=== PATIENT | female | born 1960 | race Two or more races ===

== ENCOUNTER 2023-02-05 11:31 | Emergency (ER) | payer MEDICAID, SELFPAY ==
[2023-02-05 11:40] VITALS: BP 157/92; PULSE 92; RESP 18; TEMP 36.5; O2SAT 98; BMI 25.4
--- NOTE | 2023-02-05 11:46 | ED_ITS ---
HPI - General Adult General Chief complaint: Allergic Reaction Stated complaint: ulcer on back?? Time Seen by Provider: 02/05/23 14:45 Source: patient Mode of arrival: ambulatory Limitations: no limitations History of Present Illness HPI narrative: this is a 62-year-old female presenting to the emergency department for evaluation of rash on her back, ongoing for the past few days, patient does report that recently she change her soap she uses she is not sure this contributed to the rash. She reports rash is itchy. She said she had this a few weeks ago also and resolved. Patient also complaining of diffuse headache without vision changes, dizziness or associated trauma. She tells me it feels like her typical headache however they gave her Tylenol now it is gone at time of my history. Patient denies headache, vision changes, dizziness, nausea, vomiting, abdominal pain, chest pain, shortness of breath at time of evaluation. Related Data Previous Rx's Medication Instructions Recorded prednisone 20 mg tablet 40 mg PO DAILY 5 days #10 tabs 02/05/23 Allergies Allergy/AdvReac Type Severity Reaction Status Date / Time No Known Allergies Allergy Verified 02/05/23 11:39 Review of Systems Review of Systems: Constitutional : No Weight loss, No Fever, No Chills, No Fatigue, No Malaise ENT/Mouth : No sore throat, No Rhinorrhea Eyes: No Eye Pain, No Swelling, No Redness Cardiovascular : No Chest Pain, No SOB, No Dyspnea on Exertion, No Orthopnea, No Edema, No Palpitations Respiratory : No Cough, No Sputum, No Wheezing Gastrointestinal : No Nausea, No Vomiting, No Diarrhea, No Constipation, No abdominal Pain, No Hematochezia, No Melena Genitourinary : No Dysuria, No Urinary Frequency, No Hematuria, Musculoskeletal : No joint pain, No Myalgias, No Joint Swelling Skin : No Skin Lesions, + rash Neuro : No Weakness, No Numbness, No Dizziness, No Headache Psych : No Anxiety/Panic, No Depression All other systems reviewed and are negative Yes all other systems are reviewed and are negative [facility] Past Medical History Attestation statement: The following information was validated with the patient. Source: old records reviewed and nursing notes reviewed Social History Social History Advance Directives: No Advance Directives Information Provided: No Physical Exam ED Vital Signs: Vital Signs - 24 hr 02/05/23 11:40 Temperature 97.7 F Pulse Rate 92 Respiratory Rate 18 Blood Pressure 157/92 H Pulse Oximetry 98 Oxygen Delivery Method Room Air BMI result Body Mass Index 25.4 vss Appearance: Alert.? Oriented X3.? No acute distress.? Head: Normocephalic, atraumatic, no step-offs or deformities Eyes: Pupils equal, round and reactive to light.? ENT: Pharynx normal.?No edema Neck: Normal inspection.? Neck supple.? CVS: Normal heart rate and rhythm.? Pulses normal.? Respiratory: No respiratory distress.? Breath sounds normal.? Abdomen: Soft and nontender.? Skin: Skin warm and dry.? Normal skin color.? Normal skin turgor.? Extremities: No lower extremity edema.? No calf ttp. 5/5 strength to bilateral upper and lower extremities Back: No midline tenderness, no C-spine tenderness, full range of motion, no CVA tenderness bilaterally + rash on lower back around midline maculopapular w/ urticaria and a/c excoriations from itching per patient Neuro: Oriented X 3.? No motor deficit.? No sensory deficit. CN 2-12 intact . Normal rlmbck-gv-jguj, fadw-mo-zkov, steady tandem gait. Course Course Course Narrative: This is an RME: Additional HPI, ROS, PE not included below will be deferred to primary provider. This is a 54-iyls-gkn-kiswahili speaking female, with hx of HTN and migraines, presenting to the ER with complaints of itchy rash on back x 2 weeks. States that she is taking an antibiotic that she got from a friend? but just switched over to dove soap 2 weeks ago. VSS. Maculopapular rash noted to back. Will need further investigation by primary provider in the main emergency department. 1400 - pt approached triage complaining of headache, states that she has a hx of migraines, usually responds to tylenol. Pt medicated with tylenol 1g PO. Medications Administered Discontinued Medications Generic Name Dose Route Start Last Admin Trade Name Freq PRN Reason Stop Dose Admin Acetaminophen 975 mg 02/05/23 14:02 02/05/23 14:07 Acetaminophen 325 Mg Tablet PO 02/05/23 14:03 975 mg ONCE ONE Administration Medical Decision Making Medical Decision Making MDM Narrative: 62-year-old female presents with rash to lower back status post trying a new soap. Physical exam significant for rash on lower back around midline maculopapular w/ urticaria and a/c excoriations from itching per patient likely irritant contact dermatitis versus contact dermatitis versus allergic reaction. history and physical exam less suspicious for herpes zoster , no preceding symptoms to rash or constitutional symptoms. No recent illness. No signs of necrotizing infection. No back pain For red flag symptoms associated with back pain therefore unlikely epidural abscess, cauda equina, cord compression . Headache likely typical headache Which is now resolved, NIH stroke scale 0, neuro nonfocal, unlikely stroke, posterior stroke. plan in his own. Advised her to stop using the soap. Educated patient on diagnosis and treatment plan, answered all question, patient verbalizes understanding. At this time patient will be discharged home, advised to return with new or worsening symptoms. Educated on worrisome signs and symptoms and when to return. At this time I feel comfortable discharge home. Differential Diagnosis Differential Diagnoses: The differential diagnosis associated with the presentation includes likely irritant contact dermatitis versus contact dermatitis versus allergic re action. history and physical exam less suspicious for herpes zoster , no preceding symptoms to rash or constitutional symptoms. No recent illness. No signs of necrotizing infection. No back pain For red flag symptoms associated with back pain therefore unlikely epidural abscess, cauda equina, cord compression . Headache likely typical headache Which is now resolved, NIH stroke scale 0, neuro nonfocal, unlikely stroke, posterior stroke. Admission/Observation Consideration of admission/observation: Escalation of care including admission/observation considered no indication Core Measures AMI core measures followed: Yes Measure exclusions: not indicated Critical Care Time Critical Care Time Critical Care Time: No Discharge Plan Discharge Clinical Impression: Contact dermatitis Patient Disposition: Home, Self-Care Instructions: Contact Dermatitis (ED) Additional Instructions: Take your medications as prescribed. If you were prescribed antibiotics today, it is important that you take your medication to their entirety, do not skip any doses, do not finish them early. Follow-up with your primary care provider this week. Return to the emergency department with new or worsening symptoms. Such as fevers, chills, chest pain, shortness of breath, nausea, vomiting, dizziness, headache, vision changes, lethargy In case of emergency call 911 Prescriptions: New prednisone 20 mg tablet 40 mg PO DAILY 5 Days Qty: 10 0RF Referrals: Physician,Nonstaff [Primary Care Provider] - 2 days Interventions: ED Discharge Assessment Last Done: 02/05/23 16:23 Discharge Date/Time: 02/05/23 16:23
[2023-02-05] MEDS: Acetaminophen 325 MG TABLET 975 MG PO (14:07)
--- NOTE | 2023-02-05 16:07 | PC.NURSE ---
Pt requesting pain medication. Awaiting provider evaluation. ABDIRAHMAN Wall aware.
--- NOTE | 2023-02-05 16:18 | PC.NURSE ---
Patient requested medication for itching. Came to hallway to speak with provider (ABDIRAHMAN Wall). States I'm just going to go home .
== END 2023-02-05 16:23 | disposition home or self-care (01) ==
PROVIDERS: Emergency Provider Student in an Organized Health Care Education/Training Program
DX: L25.9 Unspecified contact dermatitis, unspecified cause (principal); R51.9 Headache, unspecified
CPT/HCPCS: 99283

== ENCOUNTER 2023-02-16 12:52 | Emergency (ER) | payer MEDICAID, SELFPAY ==
--- NOTE | ~2023-02-16 | XR_ITS ---
EXAMINATION: XR LUMBOSACRAL SPINE CLINICAL INFORMATION: Low back pain status post fall. COMPARISON: None available. TECHNIQUE: Three views of the lumbosacral spine. FINDINGS: There is normal lumbar lordosis and spinal alignment. Moderate degenerative disc disease is seen at L4-L5 and L5-S1. There is no acute fracture. Mild bilateral facet arthropathy seen at L5-S1. Surgical clips overlie the right upper quadrant. The soft tissues are unremarkable. XR/XR lumbar spine 2-3V IMPRESSION: L4-L5 and L5-S1 moderate degenerative disc disease and mild bilateral facet arthropathy. No acute abnormality.
--- NOTE | ~2023-02-16 | XR_ITS ---
EXAMINATION: XR SACRUM AND COCCYX CLINICAL INFORMATION: Sacral pain status post fall. COMPARISON: None available. TECHNIQUE: 2 views of the sacrum and 2 views of the coccyx were obtained. FINDINGS: There are no fractures. No bone, joint or soft tissue abnormality is demonstrated. XR/XR sacrum coccyx min 2V IMPRESSION: Unremarkable sacrum/coccyx.
[2023-02-16 14:25] VITALS: BP 141/91; PULSE 110; RESP 16; TEMP 36.3; O2SAT 98; BMI 25.4
--- NOTE | 2023-02-16 14:29 | ED_ITS ---
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 Patient was seen at [facility] 11 days ago for similar symptoms & prescribed prednisone which she has been using without relief. Has been taking OTC benadryl without relief. Denies recent sick contacts, tick bites or travel, new exposures. Denies headache, numbness/ tingling/ weakness to LE, saddle anesthesia, bowel/bladder retention or incontinence, joint pain, fever/chills. Related Data Previous Rx's Medication Instructions Recorded prednisone 20 mg tablet 40 mg PO DAILY 5 days #10 tabs 02/05/23 hydrocortisone 1 % topical cream 1 appl topical BID PRN itching 1 02/16/23 week #28.35 grams Allergies Allergy/AdvReac Type Severity Reaction Status Date / Time No Known Allergies Allergy Verified 02/05/23 11:39 Review of Systems Review of Systems: Constitutional: No Fever, No Chills ENT/Mouth: No Ear Pain, No Nasal Congestion, No Sinus Pain, No Hoarseness, No sore throat Cardiovascular: No Chest Pain, No SOB Respiratory: No Cough, No Sputum, No Wheezing Gastrointestinal: No Nausea, No Vomiting, No Diarrhea, No Constipation, No Abdominal pain Genitourinary: No Dysuria, No Urinary Frequency, No Hematuria, No Urinary Incontinence/retention, No Urgency, No Flank Pain Musculoskeletal: + back pain, no joint pain, No Myalgias, No Joint Swelling Skin: No Skin Lesions, + rash Neuro: No Weakness, No Numbness, No Paresthesias Yes all other systems are reviewed and are negative Constitutional: Constitutional: Reports as per [facility] Past Medical History Attestation statement: The following information was validated with the patient. Source: old records reviewed Social History Social History Advance Directives: No Physical Exam ED Vital Signs: Vital Signs - 24 hr 08/21/23 14:25 Temperature 97.4 F Pulse Rate 110 H Respiratory Rate 16 Blood Pressure 141/91 H Pulse Oximetry 98 Oxygen Delivery Method Room Air BMI result Body Mass Index 25.4 Const General: cooperative, healthy appearing and no acute distress Orientation/consciousness: patient oriented x3 Limitations: no limitations HENMT Head: Yes normal to inspection and Yes atraumatic Ears: hearing grossly normal bilaterally General nose exam: Normal external nose present Face and sinus: Yes normal facial exam Throat: Yes uvula midline, No uvula laterally displaced and No uvular edema Eyes General: appearance normal, both eyes and all related structures EOM: EOMs intact bilaterally Neck Neck: Yes normal visual inspection and Yes no meningeal signs Resp Effort & Inspection: normal respiratory effort and no respiratory distress Auscultation: clear to auscultation bilaterally Cardio Rate: regular rate Heart sounds: S1 normal heart sound present and S2 normal heart sound present GI Inspection: Yes normal to inspection Palpation (GI): Soft to palpation, nontender, no guarding and not rigid Back/Spine/Pelvis Other: No midline cervical/thoracic/lumbar spinous tenderness/step-off or deformity. Thoracic/Lumbar Spine: thoracic and lumbar spine normal to inspection Skin Other: no sloughing, mucus membrane or palm/sole involvement General skin exam: no excoriation(s) Rashes: no rashes Wounds: no wounds Neuro Other: Strength intact throughout. No saddle anesthesia. Sensation intact to light touch. Neurovascular intact distally General: patient oriented x3, gait normal, tone normal, moves all extremities, no meningeal signs and no focal motor deficits Cranial nerves: Yes CN's II-XII intact bilaterally Gait exam (Neuro): Normal gait present Extrem General: Yes normal to inspection Course Course Course Narrative: This is an RME: Additional HPI, ROS, PE not included below will be deferred to primary provider. This is a 62-year-old female, with a past medical history of high blood pressure, presenting to the emergency department for evaluation of continued itchy rash on back x1 month. She was seen on February 05 and was given a prescription for prednisone which provided her with minimal relief. She also is endorsing back pain, and is requesting a shot of pain medication. No difficulty breathing or swallowing. She is speaking in full sentences. In no acute distress vital signs is stable. Plan: Labs, x-rays -Labs unremarkable XR lumbar spine 2-3V IMPRESSION: L4-L5 and L5-S1 moderate degenerative disc disease and mild bilateral facet arthropathy. No acute abnormality. XR sacrum coccyx min 2V IMPRESSION: Unremarkable sacrum/coccyx. Results discussed with patient including worrisome signs and symptoms and strict return precautions, and when to return to the emergency department. They verbalized understanding and feel safe for discharge at this time. Medical Decision Making Medical Decision Making [facility] Narrative: 62-year old female with no significant PMHx presents to the ED today with complaints of atraumatic lower back pain with radiation into b/l LE x1 week and pruritic rash to back x1 mos. Vital signs stable. Patient nontoxic appearing, NAD, lungs CTA b/l, no saddle anesthesia, NV intact distally, no rashes or excoriations noted. Clinical concern for arthritis vs DDD vs MSK pain/strain. Low suspicion zoster, lyme disease, SJS or TENS. No evidence of liver failure/ pathology. Plan: xrays and labs ordered in triage Please refer to course for remaining clinical decision making, interpretation of labs/imaging results, and discussions with consultants and/or family members. Differential Diagnosis Differential Diagnoses: The differential diagnosis associated with the presentation includes As above Admission/Observation Consideration of admission/observation: Escalation of care including admission/observation considered Lab Data [facility] Lab Attestation statement: I reviewed the patient's lab results. 02/16/23 14:44 02/16/23 14:44 Labs: Lab Results 02/16/23 02/16/23 Range/Units 14:44 14:44 WBC 8.1 (4.8-10.8) X10*3/uL RBC 4.63 (4.20-5.50) X10*6/uL Hgb 13.7 (12.0-16.0) g/dl Hct 40.9 (37.0-47.0) % MCV 88.3 (80.0-98.0) fL MCH 29.6 (27.0-33.0) pg MCHC 33.5 (31.0-35.0) g/dl RDW 12.5 (11.0-16.0) % Plt Count 322 (160-400) X10*3/uL MPV 9.3 L (9.4-12.3) fL Immature Gran % (Auto) 0.6 H (0.0-0.4) % Neut % (Auto) 63.2 (45-73) % Lymph % (Auto) 28.9 (20-40) % Sampson % (Auto) 7.1 (2-11) % Eos % (Auto) 0.1 (0-4) % Baso % (Auto) 0.1 (0-2) % Lymph # (Auto) 2.4 (1.2-4.9) X10*3/uL Sampson # (Auto) 0.6 (0.1-1.2) X10*3/uL Eos # (Auto) 0.0 (0.0-0.4) X10*3/uL Baso # (Auto) 0.0 (0.0-0.2) X10*3/uL Abs Immat Gran (auto) 0.05 H (0.00-0.03) X10*3/uL Absolute Neuts (auto) 5.1 (2.0-8.3) x10*3/uL Absolute Nucleated RBC 0.000 (0.0-0.012) X10*3/uL Nucleated RBC % (auto) 0.0 (0.0-0.2) /100WBC Sodium 141 (135-145) mmol/L Potassium 3.5 (3.3-5.1) mmol/L Chloride 105 (96-108) mmol/L Carbon Dioxide 25 (22-29) mmol/L Anion Gap 15 (12-20) BUN 15 (9-16) mg/dL Creatinine 0.75 (0.5-1.4) mg/dL Estim Creat Clear Calc 74.1 Estimated GFR > 60 Random Glucose 125 H (60-115) mg/dL Calcium 10.5 H (8.4-10.2) mg/dL Total Bilirubin 0.3 (0.0-1.0) mg/dL Direct Bilirubin 0.1 (0.0-0.5) mg/dL AST 16 (5-31) U/L ALT 21 (0-31) U/L Alkaline Phosphatase 74 (39-117) U/L Total Protein 8.2 H (6.5-8.0) g/dL Albumin 4.6 (3.5-5.0) g/dL Independent Interpretation I performed an independent interpretation of an: Plain X-Ray Radiology Impression Discussion of test interpretation with radiology: I have reviewed the radiologist's reading. Radiologist Impression: XR lumbar spine 2-3V IMPRESSION: L4-L5 and L5-S1 moderate degenerative disc disease and mild bilateral facet arthropathy. No acute abnormality. XR sacrum coccyx min 2V IMPRESSION: Unremarkable sacrum/coccyx. External Record Review External record reviewed: Inpatient record, Office record, Outpatient record, Prior outpatient labs, Prior outpatient radiology, Primary care record and Outside ED record Tests considered The following testing was considered but not selected: As above Prescription Management I considered prescription management with: Pain Medication and Other Discharge Plan Discharge Clinical Impression: Itching, Degenerative disc disease, lumbar Patient Disposition: Home, Self-Care Instructions: Back Pain (ED), Itchy Skin (ED), Degenerative Disc Disease (ED) Additional Instructions: Your labs are unremarkable. The xrays of your back show disc degeneration of the lumbar region, otherwise reassuring. Please follow up with orthopedics if back pain continues. You have been provided a referral. Topical hydrocortisone has been sent to your pharmacy. Apply this to any area of itching. You can take over the counter benedryl and claritin for the itching as needed. Follow up with dermatology. You have been provided a referral. CALL THEM TO MAKE AN APPOINTMENT. Tus laboratorios no tienen nada especial. Las radiograf?as de huber espalda muestran degeneraci?n discal de la h[place]?n lumbar, por lo dem?s tranquilizadoras. Mateo un seguimiento con ortopedia si el dolor de espalda contin?a. Se le em proporcionado treva referencia. Se em enviado hidrocortisona t?pica a huber farmacia. Aplicar esto a cualquier ?parish de picaz?n. Puede ángel benedryl y claritin de venta odilon para la picaz?n seg?n sea necesario. Seguimiento con dermatolog?a. Se le em proporcionado treva referencia. LL?MENOS PARA HACER TREVA NESTOR. Prescriptions: New hydrocortisone 1 % cream 1 appl topical BID PRN (Reason: itching) 7 Days Qty: 28.35 0RF No Action prednisone 20 mg tablet 40 mg PO DAILY 5 Days Qty: 10 0RF Referrals: Lao,Meagan, PA [Physician Field Research Assistant] - Physician,Unknown J [Primary Care Provider] -
[2023-02-16 14:47] LABS: MANUAL DIFF FLAG NO
[2023-02-16 14:50] LABS: Basophils Percent Auto 0.1 % (0-2); Eosinophils Percent Auto 0.1 % (0-4); Hematocrit 40.9 % (37.0-47.0); Hemoglobin 13.7 g/dl (12.0-16.0); Imm Gran Abs Auto 0.05 X10*3/uL (0.00-0.03); Imm Gran Pct Auto 0.6 % (0.0-0.4); Lymphocytes Absolute Auto 2.4 X10*3/uL (1.2-4.9); Lymphocytes Percent Auto 28.9 % (20-40); Mean Corpuscular HGB Conc 33.5 g/dl (31.0-35.0); Mean Corpuscular Hemoglobin 29.6 pg (27.0-33.0); Mean Corpuscular Volume 88.3 fL (80.0-98.0); Mean Platelet Volume 9.3 fL (9.4-12.3); Monocytes Absolute Auto 0.6 X10*3/uL (0.1-1.2); Monocytes Percent Auto 7.1 % (2-11); Neutrophils Absolute Auto 5.1 x10*3/uL (2.0-8.3); Neutrophils Percent Auto 63.2 % (45-73); Platelet Count 322 X10*3/uL (160-400); Red Blood Count 4.63 X10*6/uL (4.20-5.50); Red Cell Distribution Width 12.5 % (11.0-16.0); White Blood Count 8.1 X10*3/uL (4.8-10.8)
[2023-02-16 15:05] LABS: Alanine Aminotransferase 21 U/L (0-31); Albumin Level 4.6 g/dL (3.5-5.0); Alkaline Phosphatase 74 U/L (39-117); Anion Gap 15 (12-20); Aspartate Amino Transferase 16 U/L (5-31); Bilirubin Direct 0.1 mg/dL (0.0-0.5); Bilirubin Total 0.3 mg/dL (0.0-1.0); Blood Urea Nitrogen 15 mg/dL (9-16); Calcium 10.5 mg/dL (8.4-10.2); Carbon Dioxide 25 mmol/L (22-29); Chloride 105 mmol/L (96-108); Creatinine Clr Calc Pharmacy 74.1; Estimated Glomerular Filt Rate > 60; Glucose Random 125 mg/dL (60-115); Potassium 3.5 mmol/L (3.3-5.1); Sodium 141 mmol/L (135-145); Total Protein 8.2 g/dL (6.5-8.0)
[2023-02-16 16:34] VITALS: BP 125/84; PULSE 98; RESP 20; TEMP 36.6; O2SAT 98
[2023-02-16] MEDS: Ketorolac Tromethamine 30 MG/ML VIAL IM (16:34)
== END 2023-02-16 16:45 | disposition home or self-care (01) ==
PROVIDERS: Physician Assistant Medical; Emergency Provider Emergency Medicine
DX: L29.9 Pruritus, unspecified (principal); M51.36 Other intervertebral disc degeneration, lumbar region; M53.3 Sacrococcygeal disorders, not elsewhere classified; Z79.899 Other long term (current) drug therapy
CPT/HCPCS: 36415; 72100; 72220; 80048; 80076; 85025; 96372; 99283; 99284; J1885

== ENCOUNTER 2023-02-28 10:05 | Emergency (ER) | payer MEDICAID, SELFPAY ==
[2023-02-28 10:15] VITALS: BP 138/89; PULSE 106; RESP 16; TEMP 35.9; O2SAT 97; BMI 26.7
--- NOTE | 2023-02-28 11:21 | ED_ITS ---
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 Reports t hat her entire body is pruritic. Denies any abnormal vaginal discharge or concern for STIs. Has been seen in this emergency department twice, has been on 2 courses of prednisone as well as used hydrocortisone cream without relief. Reports that she has discontinued use of [place] soap and has begin using a soap from [place]. States she did not contact dermatology as instructed at prior visit. She denies any fevers or systemic symptoms, chest pain, shortness of breath. Denies any oral lesions or irritation. MD complaint: rash Onset (ago): week(s) Location: back and genitals Severity: severe Relieving factors: none Associated symptoms: denies other symptoms Treatments prior to arrival: other (prednisone, hydrocortisone cream) Related Data Previous Rx's Medication Instructions Recorded prednisone 20 mg tablet 40 mg PO DAILY 5 days #10 tabs 02/05/23 hydrocortisone 1 % topical cream 1 appl topical BID PRN itching 1 02/16/23 week #28.35 grams hydrocortisone 1 % topical cream 1 appl topical BID PRN itching 02/28/23 #28.35 grams triamcinolone acetonide 0.1 % 1 appl topical BID #15 grams 02/28/23 topical cream Allergies Allergy/AdvReac Type Severity Reaction Status Date / Time No Known Allergies Allergy Verified 02/05/23 11:39 Review of Systems Review of Systems: As per HPI. Yes all other systems are reviewed and are negative Constitutional: Constitutional: Reports as per HPI [facility] Social History Social History Advance Directives: No Advance Directives Information Provided: No Physical Exam ED Vital Signs: Vital Signs - 24 hr 02/28/23 10:15 Temperature 96.7 F L Pulse Rate 106 H Respiratory Rate 16 Blood Pressure 138/89 Pulse Oximetry 97 Oxygen Delivery Method Room Air BMI result Body Mass Index 26.7 Vital signs have been reviewed and appear to be correct. Blood pressure normal. Heart rate mildly tachycardic. Respiratory rate normal. Temperature normal. Oxygen saturation normal. Const General: cooperative, healthy appearing and no acute distress Orientation/consciousness: oriented to person, oriented to place, oriented to time and patient oriented x3 Limitations: no limitations HENMT Other: no oral lesions noted Head: Yes normocephalic and Yes atraumatic Ears: external ears normal General nose exam: Normal external nose present Face and sinus: Yes face symmetric Mouth: Normal oral and palatal mucosa present, lip normal, tongue normal, oropharynx normal and moist mucous membranes Throat: Yes uvula midline Eyes Pupils: Equal, round and reactive pupils present Neck Neck: Yes normal visual inspection and Yes supple Resp Effort & Inspection: normal respiratory effort and able to speak in complete sentences Auscultation: clear to auscultation bilaterally Cardio Rate: regular rate Rhythm: regular rhythm Heart sounds: S1 normal heart sound present and S2 normal heart sound present GI Palpation (GI): Soft to palpation and nontender Auscultation: normoactive bowel sounds General: Yes no CVA tenderness Back/Spine/Pelvis Back: no CVA tenderness Skin Other: Fine maculopapular rash noted to lower back with mild excoriation due to patient scratching at the area with a metal back numberer and wirer. No sloughing, bullae, petechiae, no rash to palms/soles General skin exam: elasticity normal and turgor normal Neuro General: oriented to person, oriented to place, oriented to time, patient oriented x3, moves all extremities, no focal motor deficits and CN's II-XI intact bilaterally Cranial nerves: Yes Equal, round and reactive pupils present Cognition (Neuro): normal cognition Extrem General: Yes full ROM, Yes no pedal edema and Yes no calf tenderness Psych Mental Status: mental status grossly normal Affect: normal affect Thought process: Normal thought process present Medical Decision Making Medical Decision Making MDM Narrative: Patient is a 62-year-old female presenting to the emergency department with complaint of pruritic rash to back and genital area for over a month. On exam patient is awake, A+Ox3, VS WNL, afebrile, normal neurological exam without focal deficits, fine maculopapular rash noted to back and groin, no oral lesions, lungs CTA. Given reported symptoms and physical exam findings, initial differential includes atopic dermatitis, contact dermatitis. Do not suspect DRESS, TEN/SJS, SSSS, TSS. Rash not consistent with herpes zoster, scabies, bed bugs, tinea, lichen planus. Will prescribe triamcinolone cream for back and hydrocortisone cream for genital area. Discussed with patient the importance of following up with dermatology. Advised patient she can begin using cetirizine 10 mg daily and slowly increase the dose up to total max dose of 40 mg to help with itching. Instructed patient to avoid extremes in temperature when showering. Instructed patient to follow-up with primary care provider as well. Return precautions discussed at bedside. Patient verbalized understanding of and agreement with plan. Differential Diagnosis Differential Diagnoses: The differential diagnosis associated with the presentation includes As per MDM. External Record Review External record reviewed: Inpatient record, Office record and Outpatient record Prescription Management I considered prescription management with: Other Discharge Plan Discharge Clinical Impression: Rash and nonspecific skin eruption Patient Disposition: Home, Self-Care Instructions: Contact Dermatitis (DC) Additional Instructions: Ruben lo evaluaron en el departamento de emergencias por un sarpullido. Le recetan dos cremas para aliviar la picaz?n. NO USE la crema de triamcinolona en el ?parish genital, solo use la crema de hidrocortisona all?. Evite temperaturas extremas al ba?arse y utilice ?nicamente agua tibia. Comience a bello Zyrtec (cetirizina) 10 mg al d?a. Si tus s?ntomas no mejoran, puedes bello 10 mg de cetirizina por la ma?ron y por la noche. Si los s?ntomas a?n no mejoran, bello 20 mg por la ma?ron y 10 mg por la noche. Si los s?ntomas no mejoran, bello 20 mg por la ma?ron y 20 mg por la noche. NO BELLO M?S DE 40 mg EN TOTAL EN UN D?A. Es importante que hagas un seguimiento con el dermat?logo, ya que ellos son los especialistas de la piel. POR FAVOR LLAME A JACOBO OFICINA PARA IDANIA NESTOR. Regrese al departamento de emergencias si presenta un sarpullido que empeora, fiebre de 100.4 F o m?s, dificultad para respirar, dolor en el pecho o cualquier otro s?ntoma preocupante. Prescriptions: New hydrocortisone 1 % cream 1 appl topical BID PRN (Reason: itching) Qty: 28.35 0RF Rx Instructions: For itching to genital area triamcinolone acetonide 0.1 % cream 1 appl topical BID Qty: 15 0RF Rx Instructions: Apply to all areas of itching EXCEPT genital area No Action prednisone 20 mg tablet 40 mg PO DAILY 5 Days Qty: 10 0RF hydrocortisone 1 % cream 1 appl topical BID PRN (Reason: itching) 7 Days Qty: 28.35 0RF Referrals: [facility] [Provider Group] [facility] [Provider Group] [facility] [Provider Group] Print Language: Turkmen
== END 2023-02-28 12:13 | disposition home or self-care (01) ==
PROVIDERS: Emergency Provider Emergency Medicine
DX: R21 Rash and other nonspecific skin eruption (principal); L29.9 Pruritus, unspecified
CPT/HCPCS: 99283

== ENCOUNTER 2023-06-12 09:55 | Emergency (ER) | payer MEDICAID, SELFPAY ==
[2023-06-12 09:58] VITALS: BP 96/60; PULSE 98; RESP 20; TEMP 36.1; O2SAT 99; BMI 24.0
--- NOTE | 2023-06-12 11:51 | ED.SKABFB ---
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 Reports eating pepper 1 week ago just prior to onset of itchiness. Reports itchy sensation to entire body, more prominent under her left breast along her bra line. Has not taken any medication at home for this. Denies new detergents, lotions, soaps. Denies known allergies. Denies new medications. Denies fever, chills, chest pain, SOB, wheezing, difficult swallowing or breathing, nausea, vomiting, abd pain. Related Data Previous Rx's Medication Instructions Recorded prednisone 20 mg tablet 40 mg (2 x 20 mg) PO DAILY 5 days 02/05/23 #10 tabs hydrocortisone 1 % topical cream 1 appl topical BID PRN itching 1 02/16/23 week #28.35 grams hydrocortisone 1 % topical cream 1 appl topical BID PRN itching 02/28/23 #28.35 grams triamcinolone acetonide 0.1 % 1 appl topical BID #15 grams 02/28/23 topical cream cetirizine 10 mg tablet (Zyrtec) 10 mg PO DAILY PRN allergy 06/12/23 symptoms #10 tabs diphenhydramine HCl 25 mg capsule 25 mg PO BEDTIME PRN itching #14 06/12/23 (Benadryl) caps epinephrine 0.3 mg/0.3 mL 0.3 mg (0.3 mL) IM Q10M PRN 06/12/23 injection, auto-injector (EpiPen) anaphylaxis #2 ea prednisone 20 mg tablet 20 mg PO DAILY 5 days #5 tabs 06/12/23 Allergies Allergy/AdvReac Type Severity Reaction Status Date / Time No Known Allergies Allergy Verified 02/05/23 11:39 Review of Systems Review of Systems: Constitutional: No fever, chills, fatigue, night sweats, weight changes ENT/Mouth: No ear pain, hearing loss, nasal congestion, sinus pain, rhinorrhea, sore throat Eyes: No eye pain, swelling, redness, vision changes, discharge Cardio: No chest pain, palpitations, BALDERAS, orthopnea, peripheral edema Pulm: No SOB, cough, sputum, wheezing, dyspnea, hemoptysis GI: No nausea, vomiting, hematemesis, abdominal pain, diarrhea, constipation, hematochezia, melena : No irregular bleeding, dysuria, frequency, urgency, hesitancy, hematuria, flank pain, urinary flow changes, urinary incontinence or retention MSK: No back pain, neck pain, joint pain, myalgias Skin: No lesions, rashes, +diffuse pruritis Neuro: No weakness, numbness, paresthesias, LOC, dizziness, headache All other systems reviewed and are negative. [facility] Past Medical History Attestation statement: The following information was validated with the patient. Source: old records reviewed and nursing notes reviewed Social History Social History Advance Directives: No Advance Directives Information Provided: No Physical Exam Vital Signs: Vital Signs: Last Vital Signs Temp 96.9 F 06/12/23 09:58 Pulse 98 06/12/23 09:58 Resp 20 06/12/23 09:58 BP 96/60 06/12/23 09:58 Pulse Ox 99 06/12/23 09:58 O2 Del Method Room Air 06/12/23 09:58 BMI result Body Mass Index 24.0 vss Const: General: cooperative, healthy appearing, no acute distress, alert and awake Orientation/consciousness: patient oriented x3 Limitations: no limitations HEENT: Other: + No facial edema. Tongue and lips wnl. + No edema to buccal mucosa + Posterior oropharynx without erythema/edema. Uvula midline. Controlling secretions and speaking in complete sentences + No submandublar or submental LAD + No cervical LAD Head: Yes normal to inspection Ears: hearing grossly normal bilaterally Eyes: General: appearance normal, both eyes and all related structures Periorbital: periorbital findings normal Conjunctivae: conjunctivae normal Sclerae: sclerae normal Pupils: Equal, round and reactive pupils present EOM: EOMs intact bilaterally Neck: Neck: Yes normal visual inspection, Yes full ROM and Yes no lymphadenopathy Resp: Effort & Inspection: normal respiratory effort, able to speak in complete sentences and no respiratory distress Auscultation: clear to auscultation bilaterally and no wheezes Cardio: Jugular venous distension: no JVD Rate: regular rate Rhythm: regular rhythm Peripheral pulses: radial pulses present and dorsalis pedis present GI: Inspection: Yes normal to inspection Palpation (GI): Soft to palpation and nontender Skin: Other: + refer to photos below + small scattered flat light red pruritic lesions. Noted to b/l arms and torso. no pustules, blistering, or oozing. spares the palms, soles, webbed spaces, and mucous membranes. no dermatomal distribution. no weeping. no sloughing. Neuro: General: patient oriented x3, gait normal and moves all extremities Cranial nerves: Yes Equal, round and reactive pupils present Extrem: General: Yes normal to inspection and Yes full ROM Course Course Course Narrative: 1321-- on re-evaluation, patient states that her itching has improved with Pepcid, Benadryl, Solu-Medrol. There are no signs of acute respiratory distress. She is sitting on bed, no longer itching her skin. Airway is patent. Lungs cta. Concern for folliculitis versus contact dermatitis. Will send patient home with steroid and antihistamine. Advised patient to follow-up with her primary care provider this week and a referral to an contact center specialist has been provided to her. She was advised to call them to make an appointment. Her son at bedside will be driving her home today. Patient has remained stable throughout ED visit today. Discussed strict return precautions. All questions answered at this time. Patient is agreeable with disposition and stable for discharge. Medications Administered Discontinued Medications Generic Name Dose Route Start Last Admin Trade Name Lyndonq PRN Reason Stop Dose Admin Diphenhydramine HCl 50 mg 06/12/23 11:59 06/12/23 12:13 Diphenhydramine Hcl 25 Mg Capsule PO 06/12/23 12:00 50 mg ONCE ONE Administration Famotidine 20 mg 06/12/23 11:59 06/12/23 12:13 Famotidine 20 Mg Tablet PO 06/12/23 12:00 20 mg ONCE ONE Administration Methylprednisolone Sodium Succinate 60 mg 06/12/23 11:59 06/12/23 12:13 Methylprednisolone Sod Succ 125 Mg/2 Ml Vial IM 06/12/23 12:00 60 mg ONCE ONE Administration Medical Decision Making Medical Decision Making MDM Narrative: 62 year old female with no significant pmhx presents to the ED today with a complaint of diffuse body itching x1 week. VSS. Patient is nontoxic appearing and in NAD. On exam, there are small scattered flat light red pruritic lesions. Noted to b/l arms and torso. no pustules, blistering, or oozing. spares the palms, soles, webbed spaces, and mucous membranes. no dermatomal distribution. no weeping. no sloughing. No facial edema. Tongue and lips wnl. No edema to buccal mucosa. Posterior oropharynx without erythema/edema. Uvula midline. Controlling secretions and speaking in complete sentences. No submandublar or submental LAD. No cervical LAD. Lungs cta b/l. Clinical concern for folliculitis, contact dermatitis, allergic reaction, urticaria. Unlikely angioedema, herpez zoster, funcgal infection, cellulitis, PCV, hepatitis, SJS or TEN, plant dermatitis, medication reaction, atopic dermatitis, eczema, bullous pemphigoid. Paln for medical management and re-evaluation. Differential Diagnosis Differential Diagnoses: The differential diagnosis associated with the presentation includes as above. Admission/Observation not indicated. External Record Review External record reviewed: Inpatient record Prescription Management I considered prescription management with: Other (steroid, antihistamine) Critical Care Time Critical Care Time Critical Care Time: No Discharge Plan Discharge Clinical Impression: Rash Patient Disposition: Home, Self-Care Instructions: Contact Dermatitis (ED), Acute Rash (ED), Cold Compress or Soak (ED) Additional Instructions: Your rash improved with medications today. Prednisone is a steroid that has been sent to your pharmacy. Take this over the next 5 days to help with rash. Benadryl is an antihistamine that has been sent to your pharmacy. Take this as needed for itching. Do not drive or drink on this as it may make you drowsy. Zyrtec has been sent to your pharmacy. Take this as needed for any allergic reaction. An EpiPen has been sent to your pharmacy for emergency use. If you feel like you can not breathe, your throat is closing, or feel like you are having an anaphylactic reaction, inject this into her thigh. Immediately after injection 911 should be called for immediate evaluation. Please follow-up with your PCP this week. Referral to an contact center specialist has been provided to you. You may call them to make an appointment. They will not call you. If symptoms persist or worsen despite treatment please return to the emergency department. The case of an emergency call 911. Isaacs erupci?n mejor? con medicamentos hoy. La prednisona es un esteroide que se envi? a [place]. [place] esto baljeet los pr?ximos 5 d?as para ayudar con el sarpullido. Benadryl es un antihistam?shantell que se em enviado a [place] farm[place]. [place] esto seg?n sea necesario para la picaz?n. No conduzca ni bharti con esto, ya que puede provocarle somnolencia. Zyrtec em sido enviado a [place] farm[place]. T?crane seg?n sea necesario para cualquier reacci?n al?rgica. Se envi? un EpiPen a [place] para uso de emergencia. Si siente que no puede respirar, se le danny la garganta o siente que est? teniendo treva reacci?n anafil?ctica, inyecte esto en isaacs muslo. Inmediatamente despu?s de la inyecci?n se debe llamar al 911 para treva evaluaci?n inmediata. Mateo un seguimiento con isaacs PCP esta semana. Se le em proporcionado treva derivaci?n a un especialista en alergias. Puede llamarlos para programar treva emily. No te llamar?n. Si los s?ntomas persisten o empeoran a pesar del tratamiento, regrese al departamento de emergencias. El castro de treva llamada de emergencia al 911. Prescriptions: New prednisone 20 mg tablet 20 mg PO DAILY 5 Days Qty: 5 0RF cetirizine [Zyrtec] 10 mg tablet 10 mg PO DAILY PRN (Reason: allergy symptoms) Qty: 10 0RF diphenhydramine HCl [Benadryl] 25 mg capsule 25 mg PO BEDTIME PRN (Reason: itching) Qty: 14 0RF Rx Instructions: may repeat once in 30-60 minutes if not effective epinephrine [EpiPen] 0.3 mg/0.3 mL auto-injector 0.3 mg IM Q10M PRN (Reason: anaphylaxis) Qty: 2 0RF Rx Instructions: for 2 doses No Action prednisone 20 mg tablet 40 mg PO DAILY 5 Days Qty: 10 0RF hydrocortisone 1 % cream 1 appl topical BID PRN (Reason: itching) 7 Days Qty: 28.35 0RF hydrocortisone 1 % cream 1 appl topical BID PRN (Reason: itching) Qty: 28.35 0RF Rx Instructions: For itching to genital area triamcinolone acetonide 0.1 % cream 1 appl topical BID Qty: 15 0RF Rx Instructions: Apply to all areas of itching EXCEPT genital area Referrals: Bola Gaming DO [Physician] - Interventions: ED Discharge Assessment Last Done: 06/12/23 14:01 Discharge Date/Time: 06/12/23 14:01 Print Language: Mongolian
[2023-06-12] MEDS: Famotidine 20 MG TABLET PO (12:13)
[2023-06-12] MEDS: diphenhydrAMINE HCL 25 MG CAPSULE 50 MG PO (12:13)
[2023-06-12] MEDS: methylPREDNISolone Sod Succ 125 MG/2 ML VIAL 60 MG IM (12:13)
== END 2023-06-12 14:01 | disposition home or self-care (01) ==
PROVIDERS: Emergency Provider Emergency Medicine Emergency Medical Services
DX: R21 Rash and other nonspecific skin eruption (principal); Z79.899 Other long term (current) drug therapy
CPT/HCPCS: 96372; 99282; 99284; J2930

== ENCOUNTER 2023-06-27 09:50 | Emergency (ER) | payer MEDICAID, SELFPAY ==
[2023-06-27 10:13] VITALS: BP 123/86; PULSE 102; RESP 18; TEMP 36; O2SAT 98; BMI 25.0
--- NOTE | 2023-06-27 11:28 | ED_ITS ---
HPI - General Adult General Chief complaint: General Medical Stated complaint: itchy body?? Time Seen by Provider: 06/27/23 10:39 Source: patient Mode of arrival: ambulatory Limitations: no limitations History of Present Illness HPI narrative: patient is a 62-year-old female who presents emergency department for evaluation of full body pruritus. She states she has been experiencing itching over her body for the past 4 months, denies any visible rash. She has been seen in this emergency department twice for this states she has been given different medications and creams none of which have helped. She states she has not followed up with her primary care provider as she has been visiting for the past few months from [place] and that is where her primary care provider is. She denies any known allergens, recent changes to soaps detergents or new foods. Denies any chest pain, shortness of breath, swelling. She also states that she is experiencing her chronic low back pain, she states she is prescribed muscle relaxers for this but she has ran out of the medication and does not have follow-up with her primary care provider until 07/05/2022. She denies any recent injury. Denies fevers, chills, burning with micturition, urinary frequency/urgency/hesitancy, bladder or bowel dysfunction, numbness or tingling of the perineum or bilateral legs. Denies any recent surgical procedures, any known immune compromising conditions, personal history of cancer, or IV drug usage. Related Data Previous Rx's Medication Instructions Recorded prednisone 20 mg tablet 40 mg (2 x 20 mg) PO DAILY 5 days 02/05/23 #10 tabs hydrocortisone 1 % topical cream 1 appl topical BID PRN itching 1 02/16/23 week #28.35 grams hydrocortisone 1 % topical cream 1 appl topical BID PRN itching 02/28/23 #28.35 grams triamcinolone acetonide 0.1 % 1 appl topical BID #15 grams 02/28/23 topical cream cetirizine 10 mg tablet (Zyrtec) 10 mg PO DAILY PRN allergy 06/12/23 symptoms #10 tabs diphenhydramine HCl 25 mg capsule 25 mg PO BEDTIME PRN itching #14 06/12/23 (Benadryl) caps epinephrine 0.3 mg/0.3 mL 0.3 mg (0.3 mL) IM Q10M PRN 06/12/23 injection, auto-injector (EpiPen) anaphylaxis #2 ea prednisone 20 mg tablet 20 mg PO DAILY 5 days #5 tabs 06/12/23 cyclobenzaprine 10 mg tablet 10 mg PO TID PRN muscle spasm #20 06/27/23 tabs hydroxyzine HCl 25 mg tablet 25 mg PO QID PRN itching #20 tabs 06/27/23 Allergies Allergy/AdvReac Type Severity Reaction Status Date / Time No Known Allergies Allergy Verified 06/27/23 10:15 Review of Systems Review of Systems: Yes all other systems are reviewed and are negative [facility] Past Medical History Attestation statement: The following information was validated with the patient. Source: old records reviewed Social History Social History Advance Directives: No Advance Directives Information Provided: No Physical Exam ED Vital Signs: Vital Signs - 24 hr 06/27/23 10:13 Temperature 96.8 F Pulse Rate 102 H Respiratory Rate 18 Blood Pressure 123/86 Pulse Oximetry 98 Oxygen Delivery Method Room Air BMI result Body Mass Index 25.0 Appearance: Alert.?Oriented to person, place and time. No acute distress.?Normal affect. Eyes: Pupils equal, round and reactive to light.? ENT: Pharynx normal.?? Neck: Normal inspection.? Neck supple.?? CVS: Heart sounds normal. Normal heart rate and rhythm.? Pulses normal; bilateral radial pulses 2+, bilateral posterior tibial/dorsalis pedis pulses 2+.? Respiratory: No respiratory distress.? Lung sounds clear to auscultation bilaterally?? Abdomen: Soft and non-tender. Normoactive bowel sounds. No pulsatile mass.?? Skin: Skin warm and dry.? Normal skin color.? Normal skin turgor.?? Extremities: No lower extremity edema.? No calf ttp? Back: + mild paraspinal muscular tenderness from lumbar region to coccyx. No CVA tenderness. No midline spinal tenderness, step-off's, or deformity. Full ROM intact in bilateral lower extremities. Straight leg test negative on right; Straight leg test Negative on left. No rashes, lesions, areas of induration or fluctuance, or signs of infection noted., Neuro: Moves all extremities spontaneously. 5/5 strength in hip extension/flexion, abduction, adduction. Sensation to light touch intact bilaterally. Patellar and Achilles reflex 2+ bilaterally. No ataxia, gait normal and steady.. No focal neuro deficits. Medical Decision Making Medical Decision Making MDM Narrative: patient is a 62-year-old female presents emergency department for evaluation of diffuse body pruritus and chronic lower back pain. Pruritus has been persistent for the past 4 months, she was seen in the emergency department on 02/28/2023 at which time she was prescribed topical corticosteroids without improvement, on 06/12/2023 she was seen here as well and prescribed prednisone, Zyrtec, and Benadryl which she states did not alleviate her symptoms. There is no active rash at this time. Discussed with patient nonspecific etiology discussed possible atopic dermatitis, mild contact dermatitis, dried skin. She may trial a course of hydroxyzine to see whether this will help, but I did advise her that she ultimately should have follow-up with her primary care provider who may consider referral to Dermatology/ allergy testing when she returns home. Regarding her back pain, this is chronic in nature and she has ran out of her medications of which she is unaware of the name. No recent injury. On neurological exam there are no deficits. Not consistent with spinal fracture, spinal infection, epidural abscess, AAA, epidural abscess, or dissection. No high risk past medical history including incontinence, fever, immunosuppression, recent surgery or lumbar puncture, coagulopathy, significant trauma, recent unintentional weight loss, pulsatile mass, history of cancer, history of TB, history of IV drug use that would warrant MRI or CT. Not consistent with pyelonephritis, urinary tract infection, renal calculi, pelvic infection, appendicitis, diverticulitis. On exam no concern for cauda equina syndrome. No imaging is currently indicated at this time. Plan for discharge home with prescription for cyclobenzaprine, and follow-up with primary care provider, and patient agreed with plan. Differential Diagnosis Differential Diagnoses: The differential diagnosis associated with the presentation includes ( as noted above) Admission/Observation Consideration of admission/observation: Escalation of care including admission/observation considered ( as noted above) Prescription Management I considered prescription management with: Pain Medication Discharge Plan Discharge Clinical Impression: Pruritus, Lumbago Patient Disposition: Home, Self-Care Instructions: Back Pain (ED), Itchy Skin (ED) Prescriptions: New hydroxyzine HCl 25 mg tablet 25 mg PO QID PRN (Reason: itching) Qty: 20 0RF cyclobenzaprine 10 mg tablet 10 mg PO TID PRN (Reason: muscle spasm) Qty: 20 0RF No Action prednisone 20 mg tablet 40 mg PO DAILY 5 Days Qty: 10 0RF hydrocortisone 1 % cream 1 appl topical BID PRN (Reason: itching) 7 Days Qty: 28.35 0RF hydrocortisone 1 % cream 1 appl topical BID PRN (Reason: itching) Qty: 28.35 0RF Rx Instructions: For itching to genital area triamcinolone acetonide 0.1 % cream 1 appl topical BID Qty: 15 0RF Rx Instructions: Apply to all areas of itching EXCEPT genital area prednisone 20 mg tablet 20 mg PO DAILY 5 Days Qty: 5 0RF cetirizine [Zyrtec] 10 mg tablet 10 mg PO DAILY PRN (Reason: allergy symptoms) Qty: 10 0RF diphenhydramine HCl [Benadryl] 25 mg capsule 25 mg PO BEDTIME PRN (Reason: itching) Qty: 14 0RF Rx Instructions: may repeat once in 30-60 minutes if not effective epinephrine [EpiPen] 0.3 mg/0.3 mL auto-injector 0.3 mg IM Q10M PRN (Reason: anaphylaxis) Qty: 2 0RF Rx Instructions: for 2 doses Referrals: Physician,Unknown J [Primary Care Provider] -
== END 2023-06-27 12:13 | disposition home or self-care (01) ==
PROVIDERS: Emergency Provider Emergency Medicine
DX: L29.9 Pruritus, unspecified (principal); M54.50 Low back pain, unspecified
CPT/HCPCS: 99283

== ENCOUNTER 2023-10-05 10:51 | Emergency (ER) | payer MEDICAID, SELFPAY ==
[2023-10-05 11:25] VITALS: BP 111/67; PULSE 91; RESP 20; TEMP 36.1; O2SAT 98; BMI 24.5
--- NOTE | 2023-10-05 11:38 | ED.GENADULT ---
HPI - General Adult General Chief complaint: Skin/Abscess/Foreign Body Stated complaint: itchy all over Time Seen by Provider: 10/05/23 13:24 Source: patient Mode of arrival: ambulatory Limitations: no limitations History of Present Illness HPI narrative: 63 yold female with pmh of GERD presents to the ED for generalized pruritis and presently has small area of redness on right breast. Patient states has had red itchy red rash on her body that has come and gone ( resolved). patient states no change in food, dergents, soap, or cosmetic. patient states she is visting and might be her son;s Dog causing symptoms. Related Data Previous Rx's ?Medication ?Instructions ?Recorded prednisone 20 mg tablet 40 mg (2 x 20 mg) PO DAILY 5 days 02/05/23 #10 tabs hydrocortisone 1 % topical cream 1 appl topical BID PRN itching 1 02/16/23 week #28.35 grams hydrocortisone 1 % topical cream 1 appl topical BID PRN itching 02/28/23 #28.35 grams triamcinolone acetonide 0.1 % 1 appl topical BID #15 grams 02/28/23 topical cream cetirizine 10 mg tablet (Zyrtec) 10 mg PO DAILY PRN allergy 06/12/23 symptoms #10 tabs diphenhydramine HCl 25 mg capsule 25 mg PO BEDTIME PRN itching #14 06/12/23 (Benadryl) caps epinephrine 0.3 mg/0.3 mL 0.3 mg (0.3 mL) IM Q10M PRN 06/12/23 injection, auto-injector (EpiPen) anaphylaxis #2 ea prednisone 20 mg tablet 20 mg PO DAILY 5 days #5 tabs 06/12/23 cyclobenzaprine 10 mg tablet 10 mg PO TID PRN muscle spasm #20 06/27/23 tabs hydroxyzine HCl 25 mg tablet 25 mg PO QID PRN itching #20 tabs 06/27/23 diphenhydramine HCl 25 mg capsule 25 mg PO TID PRN itching 7 days 10/05/23 (Benadryl) #21 caps famotidine 20 mg tablet (Pepcid) 20 mg PO BID 7 days #14 tabs 10/05/23 prednisone 20 mg tablet 40 mg (2 x 20 mg) PO DAILY 5 days 10/05/23 #10 tabs Allergies Allergy/AdvReac Type Severity Reaction Status Date / Time No Known Allergies Allergy Verified 10/05/23 11:37 Review of Systems Review of Systems: pruritis Yes all other systems are reviewed and are negative [facility] Social History Social History Advance Directives: No Advance Directives Information Provided: No Physical Exam ED Vital Signs: Vital Signs - 24 hr 10/05/23 11:25 10/05/23 13:58 Temperature 96.9 F 96.9 F Pulse Rate 91 91 Respiratory Rate 20 20 Blood Pressure 111/67 111/67 Pulse Oximetry 98 98 Oxygen Delivery Method Room Air Room Air BMI result Body Mass Index 24.5 Const General: cooperative, healthy appearing, comfortable, no acute distress, well developed, alert and awake Orientation/consciousness: patient oriented x3 HENMT Other: negative for facial swelling, lip swelling, tongue swelling, or uvula swelling. Head: Yes normal to inspection, Yes No palpable skull fracture present, Yes normocephalic, Yes atraumatic and No abrasion Throat: Yes posterior oropharynx normal, Yes tonsils normal and Yes uvula midline Eyes General: appearance normal, both eyes and all related structures Neck Neck: Yes normal visual inspection, Yes full ROM, Yes no lymphadenopathy, Yes no meningeal signs, Yes trachea midline, Yes supple, No anterior neck swelling and No tender Chest Chest palpation & inspection: normal inspection of the chest and normal palpation of entire chest wall Chest/axillae images: 1. small area of uticara. negative mass, tendernes, fluctulance, nipple discharge, or lympadenopahty. Resp Effort & Inspection: normal respiratory effort and able to speak in complete sentences Auscultation: clear to auscultation bilaterally Cardio Jugular venous distension: no JVD Heart sounds: S1 normal heart sound present and S2 normal heart sound present GI Inspection: Yes normal to inspection Palpation (GI): Soft to palpation, not firm, nontender, no guarding and not rigid General: Yes no CVA tenderness Back/Spine/Pelvis Back: no CVA tenderness Skin General skin exam: no rashes or lesions noted, elasticity normal and turgor normal Neuro General: patient oriented x3, gait normal, tone normal, moves all extremities, Normal light touch and pain sensation, no meningeal signs, no focal motor deficits, CN's II-XI intact bilaterally and normal sensation to monofilament Extrem General: Yes normal to inspection, Yes full ROM and Yes capillary refill normal Psych Appearance: grossly normal, well kempt and not disheveled Course Course Course Narrative: RME: 63 yold female presents to the ED for pruritis for the past 3 days. Patient denies any new allergies. patient thinks might by son's dog causing itchiness. Patient presently has no hives. she states hives she thinks couple of days ago. WIll do labs. benadryl, prednisone, and pepcid ordered Medications Administered Discontinued Medications Generic Name Dose Route Start Last Admin Trade Name Freq PRN Reason Stop Dose Admin Diphenhydramine HCl 50 mg 10/05/23 11:37 10/05/23 11:43 Diphenhydramine Hcl 25 Mg Capsule PO 10/05/23 11:38 50 mg ONCE ONE Administration Famotidine 20 mg 10/05/23 11:37 10/05/23 11:43 Famotidine 20 Mg Tablet PO 10/05/23 11:38 20 mg ONCE ONE Administration Prednisone 60 mg 10/05/23 11:37 10/05/23 11:43 Prednisone 20 Mg Tablet PO 10/05/23 11:38 60 mg ONCE ONE Administration Medical Decision Making Medical Decision Making [facility] Narrative: 63 yold female presents to the ED for generalized pruritis with any signs of anyphylaxis. Labs are normal. patient discharged with allergy meds. patient states no abdoiminal pain, or any other concerning symptoms. Labs including liver and lipas normal. NO abdominal mass on palpation. Patient explained worrisome signs and informed to return to the ED. Differential Diagnosis Differential Diagnoses: The differential diagnosis associated with the presentation includes (allergy, pancreatitis, anyphylaxis) Admission/Observation Consideration of admission/observation: Escalation of care including admission/observation considered Lab Data [facility] Lab Attestation statement: I reviewed the patient's lab results. 10/05/23 11:51 10/05/23 11:51 Labs: Lab Results 10/05/23 Range/Units 11:51 WBC 7.0 (4.8-10.8) X10*3/uL RBC 4.20 (4.20-5.50) X10*6/uL Hgb 12.6 (12.0-16.0) g/dl Hct 38.1 (37.0-47.0) % MCV 90.7 (80.0-98.0) fL MCH 30.0 (27.0-33.0) pg MCHC 33.1 (31.0-35.0) g/dl RDW 12.7 (11.0-16.0) % Plt Count 340 (160-400) X10*3/uL MPV 9.4 (9.4-12.3) fL Immature Gran % (Auto) 0.6 H (0.0-0.4) % Neut % (Auto) 57.0 (45-73) % Lymph % (Auto) 34.3 (20-40) % Emanuel % (Auto) 7.9 (2-11) % Eos % (Auto) 0.1 (0-4) % Baso % (Auto) 0.1 (0-2) % Lymph # (Auto) 2.4 (1.2-4.9) X10*3/uL Emanuel # (Auto) 0.6 (0.1-1.2) X10*3/uL Eos # (Auto) 0.0 (0.0-0.4) X10*3/uL Baso # (Auto) 0.0 (0.0-0.2) X10*3/uL Abs Immat Gran (auto) 0.04 H (0.00-0.03) X10*3/uL Absolute Neuts (auto) 4.0 (2.0-8.3) x10*3/uL Absolute Nucleated RBC 0.000 (0.0-0.012) X10*3/uL Nucleated RBC % (auto) 0.0 (0.0-0.2) /100WBC Sodium 139 (135-145) mmol/L Potassium 4.3 (3.3-5.1) mmol/L Chloride 104 (96-108) mmol/L Carbon Dioxide 27 (22-29) mmol/L Anion Gap 12 (12-20) BUN 18 H (9-16) mg/dL Creatinine 0.83 (0.5-1.4) mg/dL Estim Creat Clear Calc 60.3 Estimated GFR > 60 Random Glucose 119 H (60-115) mg/dL Calcium 10.3 H (8.4-10.2) mg/dL Total Bilirubin 0.2 (0.0-1.0) mg/dL AST 18 (5-31) U/L ALT 24 (0-31) U/L Alkaline Phosphatase 64 (39-117) U/L Total Protein 7.9 (6.5-8.0) g/dL Albumin 4.7 (3.5-5.0) g/dL Lipase 51 (8-78) U/L Independent Historian Clinical information obtained from an independent historian. History obtained from or confirmed by: Other (patient) External Record Review External record reviewed: Other (prior visits) Prescription Management I considered prescription management with: Other (allergy meds) Discharge Plan Discharge Clinical Impression: Allergic reaction Patient Disposition: Home, Self-Care Instructions: General Allergic Reaction (ED) Additional Instructions: Return to the ED immedialely for any chest pain, shortness of breath, lip swelling/tongue swelling/facial swelling, fever, chills, worsening rash, or any other concerning symptoms. Prescriptions: New diphenhydramine HCl [Benadryl] 25 mg capsule 25 mg PO TID PRN (Reason: itching) 7 Days Qty: 21 0RF prednisone 20 mg tablet 40 mg PO DAILY 5 Days Qty: 10 0RF famotidine [Pepcid] 20 mg tablet 20 mg PO BID 7 Days Qty: 14 0RF No Action prednisone 20 mg tablet 40 mg PO DAILY 5 Days Qty: 10 0RF hydrocortisone 1 % cream 1 appl topical BID PRN (Reason: itching) 7 Days Qty: 28.35 0RF hydrocortisone 1 % cream 1 appl topical BID PRN (Reason: itching) Qty: 28.35 0RF Rx Instructions: For itching to genital area triamcinolone acetonide 0.1 % cream 1 appl topical BID Qty: 15 0RF Rx Instructions: Apply to all areas of itching EXCEPT genital area prednisone 20 mg tablet 20 mg PO DAILY 5 Days Qty: 5 0RF cetirizine [Zyrtec] 10 mg tablet 10 mg PO DAILY PRN (Reason: allergy symptoms) Qty: 10 0RF diphenhydramine HCl [Benadryl] 25 mg capsule 25 mg PO BEDTIME PRN (Reason: itching) Qty: 14 0RF Rx Instructions: may repeat once in 30-60 minutes if not effective epinephrine [EpiPen] 0.3 mg/0.3 mL auto-injector 0.3 mg IM Q10M PRN (Reason: anaphylaxis) Qty: 2 0RF Rx Instructions: for 2 doses hydroxyzine HCl 25 mg tablet 25 mg PO QID PRN (Reason: itching) Qty: 20 0RF cyclobenzaprine 10 mg tablet 10 mg PO TID PRN (Reason: muscle spasm) Qty: 20 0RF Interventions: ED Discharge Assessment Last Done: 10/05/23 13:58 Discharge Date/Time: 10/05/23 13:58 Print Language: Romanian
[2023-10-05] MEDS: diphenhydrAMINE HCL 25 MG CAPSULE 50 MG PO (11:43)
[2023-10-05] MEDS: Famotidine 20 MG TABLET PO (11:43)
[2023-10-05] MEDS: predniSONE 20 MG TABLET 60 MG PO (11:43)
[2023-10-05 11:55] LABS: MANUAL DIFF FLAG NO
[2023-10-05 11:57] LABS: Basophils Percent Auto 0.1 % (0-2); Eosinophils Percent Auto 0.1 % (0-4); Hematocrit 38.1 % (37.0-47.0); Hemoglobin 12.6 g/dl (12.0-16.0); Imm Gran Abs Auto 0.04 X10*3/uL (0.00-0.03); Imm Gran Pct Auto 0.6 % (0.0-0.4); Lymphocytes Absolute Auto 2.4 X10*3/uL (1.2-4.9); Lymphocytes Percent Auto 34.3 % (20-40); Mean Corpuscular HGB Conc 33.1 g/dl (31.0-35.0); Mean Corpuscular Volume 90.7 fL (80.0-98.0); Mean Platelet Volume 9.4 fL (9.4-12.3); Monocytes Absolute Auto 0.6 X10*3/uL (0.1-1.2); Monocytes Percent Auto 7.9 % (2-11); Platelet Count 340 X10*3/uL (160-400); Red Cell Distribution Width 12.7 % (11.0-16.0)
[2023-10-05 12:12] LABS: Alanine Aminotransferase 24 U/L (0-31); Albumin Level 4.7 g/dL (3.5-5.0); Alkaline Phosphatase 64 U/L (39-117); Anion Gap 12 (12-20); Aspartate Amino Transferase 18 U/L (5-31); Bilirubin Total 0.2 mg/dL (0.0-1.0); Blood Urea Nitrogen 18 mg/dL (9-16); Calcium 10.3 mg/dL (8.4-10.2); Carbon Dioxide 27 mmol/L (22-29); Chloride 104 mmol/L (96-108); Creatinine Clr Calc Pharmacy 60.3; Estimated Glomerular Filt Rate > 60; Glucose Random 119 mg/dL (60-115); Lipase 51 U/L (8-78); Potassium 4.3 mmol/L (3.3-5.1); Sodium 139 mmol/L (135-145); Total Protein 7.9 g/dL (6.5-8.0)
[2023-10-05 13:58] VITALS: BP 111/67; PULSE 91; RESP 20; TEMP 36.1; O2SAT 98
== END 2023-10-05 13:58 | disposition home or self-care (01) ==
PROVIDERS: Physician Assistant; Emergency Provider Emergency Medicine
DX: T78.40XA Allergy, unspecified, initial encounter (principal); X58.XXXA Exposure to other specified factors, initial encounter
CPT/HCPCS: 36415; 80053; 83690; 85025; 99282; 99283

== ENCOUNTER 2023-12-18 03:10 | Emergency (ER) | payer MEDICAID, SELFPAY ==
--- NOTE | 2023-12-18 | ECG_ITS ---
Test Reason : SOB Blood Pressure : / mmHG Vent. Rate : 118 BPM Atrial Rate : 118 BPM P-R Int : 150 ms QRS Dur : 092 ms QT Int : 340 ms P-R-T Axes : 043 -19 006 degrees QTc Int : 476 ms Sinus tachycardia Minimal voltage criteria for LVH, may be normal variant ( R in aVL ) Possible Anterior infarct , age undetermined Abnormal ECG No previous ECGs available Referred By: Generic ED Physician Electronically Signed By:Heriberto Pittman
--- NOTE | ~2023-12-18 | XR_ITS ---
EXAMINATION: XR CHEST CLINICAL INFORMATION: Chest pain. COMPARISON: None available. TECHNIQUE: Frontal view of the chest was obtained. FINDINGS: No significant abnormality is noted involving the heart, lungs, mediastinum, bony thorax or soft tissues. XR/XR chest 1V IMPRESSION: No evidence for active cardiopulmonary disease.
[2023-12-18 03:15] VITALS: BP 190/100; PULSE 126; RESP 22; O2SAT 99; BMI 27.4
--- NOTE | 2023-12-18 03:41 | ED_ITS ---
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 Deric Morel HPI narrative: 63-year-old female history of hyperlipidemia and low blood pressure who presents emergency department for evaluation of high blood pressure, chest pain, shortness of breath and nausea. The patient states that she started to feel ill around 19:00 hours. She developed a gradual onset of tightness in her chest. She also had associated nausea and shortness of breath. She states she took her blood pressure and her systolic blood pressure was 149. She states her blood pressure is usually low. She denied neck pain, jaw pain, arm pain or pain radiating to her back. She denied fever, chills, rhinorrhea, cough. She did have several episodes of loose diarrheal stool yesterday. She denied myalgias arthralgias. She did not take any medications for her pain. She states this is a 1st episode of this type. She states the pain is 8/10 at its worst. Related Data Previous Rx's ?Medication ?Instructions ?Recorded prednisone 20 mg tablet 40 mg (2 x 20 mg) PO DAILY 5 days 02/05/23 #10 tabs hydrocortisone 1 % topical cream 1 appl topical BID PRN itching 1 02/16/23 week #28.35 grams hydrocortisone 1 % topical cream 1 appl topical BID PRN itching 02/28/23 #28.35 grams triamcinolone acetonide 0.1 % 1 appl topical BID #15 grams 02/28/23 topical cream cetirizine 10 mg tablet (Zyrtec) 10 mg PO DAILY PRN allergy 06/12/23 symptoms #10 tabs diphenhydramine HCl 25 mg capsule 25 mg PO BEDTIME PRN itching #14 06/12/23 (Benadryl) caps epinephrine 0.3 mg/0.3 mL 0.3 mg (0.3 mL) IM Q10M PRN 06/12/23 injection, auto-injector (EpiPen) anaphylaxis #2 ea prednisone 20 mg tablet 20 mg PO DAILY 5 days #5 tabs 06/12/23 cyclobenzaprine 10 mg tablet 10 mg PO TID PRN muscle spasm #20 06/27/23 tabs hydroxyzine HCl 25 mg tablet 25 mg PO QID PRN itching #20 tabs 06/27/23 diphenhydramine HCl 25 mg capsule 25 mg PO TID PRN itching 7 days 10/05/23 (Benadryl) #21 caps famotidine 20 mg tablet (Pepcid) 20 mg PO BID 7 days #14 tabs 10/05/23 prednisone 20 mg tablet 40 mg (2 x 20 mg) PO DAILY 5 days 10/05/23 #10 tabs ibuprofen 400 mg tablet 400 mg PO TID PRN fever or pain 12/18/23 #30 tabs Allergies Allergy/AdvReac Type Severity Reaction Status Date / Time No Known Allergies Allergy Verified 12/18/23 03:17 Review of Systems 2 Review of Systems: Yes all other systems are reviewed and are negative [facility] Past Medical History [facility] Narrative: Social history: She denies tobacco, alcohol and drug use. She is here with her son. Social History Social History Advance Directives: No Advance Directives Information Provided: No Physical Exam 2 Vital Signs: Vital Signs: Last Vital Signs Pulse 117 H 12/18/23 03:46 Resp 15 12/18/23 03:46 BP 149/89 H 12/18/23 03:46 Pulse Ox 97 12/18/23 03:46 O2 Del Method Room Air 12/18/23 03:46 BMI result Body Mass Index 27.4 Vital signs revealed an elevated heart rate of 126, elevated respiratory rate of 22 elevated blood pressure of 190/100. Exam: General: Patient appears anxious and in mild distress secondary to her chest pain. Head: Normocephalic, atraumatic EENT: PERRL, Lids normal, sclera normal, conjunctiva normal, nose normal , ears normal, throat without erythema or exudates Neck: Supple, no adenopathy Lung: breath sounds symmetric, no wheezing, rales or rhonchi Chest: symmetric movement, tender sternum and right costochondral joints Heart: Tachycardia with regular rhythm, normal S1, S2 no murmurs or rubs Abdomen: soft, non-tender, nondistended, normal bowel sounds Back: no vertebral tenderness, no CVAT Extremities: no deformities, moves all extremities symmetrically Neuro: Awake, alert, oriented, normal speech, cranial nerves intact, moves all extremities symmetrically Psych: Pleasant, cooperative Medications Administered Discontinued Medications Generic Name Dose Route Start Last Admin Trade Name Estela PRN Reason Stop Dose Admin Sodium Chloride 1,000 mls @ 999 mls/hr 12/18/23 03:42 12/18/23 05:45 Ns IV 12/18/23 04:42 Infused .Q1H1M STA Infusion Ketorolac Tromethamine 15 mg 12/18/23 03:42 12/18/23 04:09 Ketorolac Tromethamine 15 Mg/Ml Vial IVPUSH 12/18/23 03:43 15 mg ONCE STA Administration Lorazepam 1 mg 12/18/23 03:42 12/18/23 04:09 Lorazepam 2 Mg/Ml Vial IVPUSH 12/18/23 03:43 1 mg STAT STA Administration Medical Decision Making Medical Decision Making [facility] Narrative: 63-year-old female history of hyperlipidemia and low blood pressure who presents emergency department for evaluation of high blood pressure, chest pain, shortness of breath and nausea. Your symptoms began yesterday around 19:00 hours, she was complaining of chest tightness with no radiation of the pain to her neck, jaw, arms or back associated with shortness of breath and nausea. Patient took her blood pressure at home and it was elevated. Vital signs did reveal elevated heart rate, respiratory rate and blood pressure. Patient did appear to be anxious and in distress secondary to her chest pain. Physical exam did reveal sternal and right-sided costochondral joint tenderness otherwise exam was unremarkable Differential diagnosis: ?Includes but is not limited to myocardial infarction, myocardial ischemia, chest wall pain, costochondritis, pneumonia, congestive heart failure, anemia, electrolyte abnormality Following evaluation was ordered: CBC, CMP, BNP, PTT, troponin, lipase, 12 EKG, chest x-ray one view COVID-19, influenza, RSV, Patient was initially treated with the following: IV insertion, cardiac monitoring, O2 saturation monitoring, Toradol 15 mg IV, Ativan 1 mg IV, normal saline x1 L Course: : Patient's 12 EKG revealed a sinus tachycardia otherwise unremarkable My interpretation of the patient's laboratory evaluation as follows: CBC was normal. PTT was normal. CMP revealed an elevated glucose of 161. COVID-19, influenza and RSV were negative. High sensitive troponin I was detectable at 7.5 but not elevated. Chest x-ray was unremarkable. Patient feels significantly better after the above treatment. Patient most likely has costochondritis . The patient was given a prescription for ibuprofen 400 mg every 6 hours as needed for pain. She was given printed and verbal instructions and discharged home Admission/Observation Consideration of admission/observation: Escalation of care including admission/observation considered Lab Data MDM Lab Attestation statement: I reviewed the patient's lab results. 12/18/23 04:01 12/18/23 04:24 Labs: Lab Results 12/18/23 12/18/23 Range/Units 04:01 04:24 WBC 9.0 (4.8-10.8) X10*3/uL RBC 4.22 (4.20-5.50) X10*6/uL Hgb 12.8 (12.0-16.0) g/dl Hct 36.6 L (37.0-47.0) % MCV 86.7 (80.0-98.0) fL MCH 30.3 (27.0-33.0) pg MCHC 35.0 (31.0-35.0) g/dl RDW 12.3 (11.0-16.0) % Plt Count 302 (160-400) X10*3/uL MPV 9.2 L (9.4-12.3) fL Immature Gran % (Auto) 0.7 H (0.0-0.4) % Neut % (Auto) 69.3 (45-73) % Lymph % (Auto) 23.2 (20-40) % [place] % (Auto) 6.6 (2-11) % Eos % (Auto) 0.1 (0-4) % Baso % (Auto) 0.1 (0-2) % Lymph # (Auto) 2.1 (1.2-4.9) X10*3/uL [place] # (Auto) 0.6 (0.1-1.2) X10*3/uL Eos # (Auto) 0.0 (0.0-0.4) X10*3/uL Baso # (Auto) 0.0 (0.0-0.2) X10*3/uL Abs Immat Gran (auto) 0.06 H (0.00-0.03) X10*3/uL Absolute Neuts (auto) 6.2 (2.0-8.3) x10*3/uL Absolute Nucleated RBC 0.000 (0.0-0.012) X10*3/uL Nucleated RBC % (auto) 0.0 (0.0-0.2) /100WBC APTT 29.2 (26.0-36.8) SEC Sodium 141 (135-145) mmol/L Potassium 3.3 D (3.3-5.1) mmol/L Chloride 104 (96-108) mmol/L Carbon Dioxide 26 (22-29) mmol/L Anion Gap 14 (12-20) BUN 13 (9-16) mg/dL Creatinine 0.72 (0.5-1.4) mg/dL Estim Creat Clear Calc 79.0 Estimated GFR > 60 Random Glucose 161 H (60-115) mg/dL Calcium 10.0 (8.4-10.2) mg/dL Total Bilirubin 0.2 (0.0-1.0) mg/dL AST 14 (5-31) U/L ALT 19 (0-31) U/L Alkaline Phosphatase 74 (39-117) U/L Troponin I High Sens 7.5 (<3.5-17.0) ng/L B-Natriuretic Peptide < 10 (<100) pg/mL Total Protein 7.7 (6.5-8.0) g/dL Albumin 4.5 (3.5-5.0) g/dL Lipase 28 (8-78) U/L Influenza Type A (PCR) NEGATIVE (Negative) Influenza Type B (PCR) NEGATIVE (Negative) RSV RNA Qual (PCR) NEGATIVE (Negative) SARS-CoV-2 RNA (RT-PCR) NEGATIVE (Negative) Independent Interpretation I performed an independent interpretation of an: EKG and Plain X-Ray Interpretation: Interpretation of the patient's 12 EKG done at 03:23 hours is as follows sinus tachycardia rate 118, normal DE interval, QRS duration, prolonged QTC of 76 milliseconds, no ST segment elevation, no ST segment depression, no significant T-wave abnormalities, no PACs, no PVCs, no Q-waves. My interpretation patient's one-view chest x-ray is as follows: No acute disease Radiology Impression Discussion of test interpretation with radiology: I have reviewed the radiologist's reading. Radiologist Impression: XR chest 1V IMPRESSION: No evidence for active cardiopulmonary disease. Dictated By: Sergo Li Independent Historian Clinical information obtained from an independent historian. History obtained from or confirmed by: Other (Son) Prescription Management I considered prescription management with: Pain Medication Discharge Plan Discharge Clinical Impression: Acute costochondritis Patient Disposition: Home, Self-Care Instructions: Costochondritis (ED) Additional Instructions: Your blood work was normal Your EKG was normal. Your chest x-ray was normal. Your chest pain is most likely caused by inflammation of the rib joints on the right side of your chest. This is called costochondritis. Take ibuprofen for her mg pills, 1 pills every 6 hours as needed for pain. Follow-up with your doctor in 2 days. Please return to the emergency department if your symptoms get worse or if you develop any symptoms that are concerning to you. Prescriptions: New ibuprofen 400 mg tablet 400 mg PO TID PRN (Reason: fever or pain) Qty: 30 0RF No Action prednisone 20 mg tablet 40 mg PO DAILY 5 Days Qty: 10 0RF hydrocortisone 1 % cream 1 appl topical BID PRN (Reason: itching) 7 Days Qty: 28.35 0RF hydrocortisone 1 % cream 1 appl topical BID PRN (Reason: itching) Qty: 28.35 0RF Rx Instructions: For itching to genital area triamcinolone acetonide 0.1 % cream 1 appl topical BID Qty: 15 0RF Rx Instructions: Apply to all areas of itching EXCEPT genital area prednisone 20 mg tablet 20 mg PO DAILY 5 Days Qty: 5 0RF cetirizine [Zyrtec] 10 mg tablet 10 mg PO DAILY PRN (Reason: allergy symptoms) Qty: 10 0RF diphenhydramine HCl [Benadryl] 25 mg capsule 25 mg PO BEDTIME PRN (Reason: itching) Qty: 14 0RF Rx Instructions: may repeat once in 30-60 minutes if not effective epinephrine [EpiPen] 0.3 mg/0.3 mL auto-injector 0.3 mg IM Q10M PRN (Reason: anaphylaxis) Qty: 2 0RF Rx Instructions: for 2 doses hydroxyzine HCl 25 mg tablet 25 mg PO QID PRN (Reason: itching) Qty: 20 0RF cyclobenzaprine 10 mg tablet 10 mg PO TID PRN (Reason: muscle spasm) Qty: 20 0RF diphenhydramine HCl [Benadryl] 25 mg capsule 25 mg PO TID PRN (Reason: itching) 7 Days Qty: 21 0RF prednisone 20 mg tablet 40 mg PO DAILY 5 Days Qty: 10 0RF famotidine [Pepcid] 20 mg tablet 20 mg PO BID 7 Days Qty: 14 0RF Print Language: [place]
[2023-12-18 03:46] VITALS: BP 149/89; PULSE 117; RESP 15; O2SAT 97
[2023-12-18 04:07] LABS: Basophils Percent Auto 0.1 % (0-2); Eosinophils Percent Auto 0.1 % (0-4); Hematocrit 36.6 % (37.0-47.0); Hemoglobin 12.8 g/dl (12.0-16.0); Imm Gran Abs Auto 0.06 X10*3/uL (0.00-0.03); Imm Gran Pct Auto 0.7 % (0.0-0.4); Lymphocytes Absolute Auto 2.1 X10*3/uL (1.2-4.9); Lymphocytes Percent Auto 23.2 % (20-40); MANUAL DIFF FLAG NO; Mean Corpuscular Hemoglobin 30.3 pg (27.0-33.0); Mean Corpuscular Volume 86.7 fL (80.0-98.0); Mean Platelet Volume 9.2 fL (9.4-12.3); Monocytes Absolute Auto 0.6 X10*3/uL (0.1-1.2); Monocytes Percent Auto 6.6 % (2-11); Neutrophils Absolute Auto 6.2 x10*3/uL (2.0-8.3); Neutrophils Percent Auto 69.3 % (45-73); Platelet Count 302 X10*3/uL (160-400); Red Blood Count 4.22 X10*6/uL (4.20-5.50); Red Cell Distribution Width 12.3 % (11.0-16.0)
[2023-12-18] MEDS: 0.9 % Sodium Chloride 1,000 ML 999 ML IV (04:08)
[2023-12-18] MEDS: Ketorolac Tromethamine 15 MG/ML VIAL IVPUSH (04:09)
[2023-12-18] MEDS: LORazepam 2 MG/ML VIAL 1 MG IVPUSH (04:09)
[2023-12-18 04:26] LABS: B Type Natriuretic Peptide < 10 pg/mL (<100); Troponin-I High Sensitivity 7.5 ng/L (<3.5-17.0)
[2023-12-18 04:36] LABS: Partial Thromboplastin Time 29.2 SEC (26.0-36.8)
[2023-12-18 04:41] LABS: Alanine Aminotransferase 19 U/L (0-31); Albumin Level 4.5 g/dL (3.5-5.0); Alkaline Phosphatase 74 U/L (39-117); Anion Gap 14 (12-20); Aspartate Amino Transferase 14 U/L (5-31); Bilirubin Total 0.2 mg/dL (0.0-1.0); Blood Urea Nitrogen 13 mg/dL (9-16); Carbon Dioxide 26 mmol/L (22-29); Chloride 104 mmol/L (96-108); Estimated Glomerular Filt Rate > 60; Glucose Random 161 mg/dL (60-115); Lipase 28 U/L (8-78); Potassium 3.3 mmol/L (3.3-5.1); Sodium 141 mmol/L (135-145); Total Protein 7.7 g/dL (6.5-8.0)
[2023-12-18 04:44] LABS: Influenza A PCR NEGATIVE (Negative); Influenza B PCR NEGATIVE (Negative); Resp Syncy Virus RNA Qual PCR NEGATIVE (Negative); SARS COV2 PCR INHOUSE NEGATIVE (Negative)
[2023-12-18 05:58] VITALS: BP 149/89; PULSE 117; RESP 15; TEMP 36.1; O2SAT 97
== END 2023-12-18 06:08 | disposition home or self-care (01) ==
PROVIDERS: Emergency Provider Emergency Medicine Emergency Medical Services
DX: M94.0 Chondrocostal junction syndrome [Tietze] (principal); R06.02 Shortness of breath; R51.9 Headache, unspecified; R07.89 Other chest pain; R11.2 Nausea with vomiting, unspecified; Z03.818 Encounter for observation for suspected exposure to other biological agents ruled out; Z79.899 Other long term (current) drug therapy
CPT/HCPCS: 0241U; 36415; 71045; 80053; 83690; 83880; 84484; 85025; 85730; 93005; 96361; 96374; 96375; 99284; 99285; J1885; J2060

== ENCOUNTER → 2023-12-18 03:23 | Outpatient (BNV) | payer MEDICAID, SELFPAY | PROVIDERS: Emergency Provider Emergency Medicine Emergency Medical Services; Visit Provider Internal Medicine Cardiovascular Disease | DX: R94.31 Abnormal electrocardiogram [ECG] [EKG] (principal) | CPT/HCPCS: 93010 ==

== ENCOUNTER 2024-03-16 09:26 | Emergency (ER) | payer MEDICAID, SELFPAY ==
--- NOTE | ~2024-03-16 | XR_ITS ---
EXAMINATION: XR CHEST CLINICAL INFORMATION: Chest pain. COMPARISON: Chest radiograph dated 12/18/2023. TECHNIQUE: 2 views of the chest were obtained. FINDINGS: The lungs are clear. The cardiomediastinal silhouette is normal in size. There is no pleural effusion or pneumothorax. No acute osseous abnormality. XR/XR chest 2V IMPRESSION: No acute cardiopulmonary findings. Electronically signed by: Blake Castle MD 03/16/2024 11:52 AM EDT
[2024-03-16 09:30] VITALS: BP 104/74; PULSE 86; RESP 18; TEMP 36.3; O2SAT 99; BMI 25.5
--- NOTE | 2024-03-16 09:34 | ECG_ITS ---
Test Reason : CP Blood Pressure : / mmHG Vent. Rate : 075 BPM Atrial Rate : 075 BPM P-R Int : 154 ms QRS Dur : 084 ms QT Int : 392 ms P-R-T Axes : 032 -22 -12 degrees QTc Int : 437 ms Normal sinus rhythm Nonspecific T wave abnormality Abnormal ECG When compared with ECG of 18-DEC-2023 03:23, Vent. rate has decreased BY 43 BPM Nonspecific T wave abnormality now evident in Anterior leads T wave inversion now evident in Inferior leads Referred By: Generic ED Physician Electronically Signed By:DAMIEN NIÑO
[2024-03-16 10:00] VITALS: BP 132/80; PULSE 80; RESP 15; TEMP 37.1
[2024-03-16 10:09] LABS: MANUAL DIFF FLAG NO
--- NOTE | 2024-03-16 10:10 | ED_ITS ---
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 Patient states that over the last month she has had left sided body pain and cramping chest pain. Patient denies any dizziness, lightheadedness, abdominal pain, nausea, vomiting, fever, chills, blurry vision, double vision, loss of vision, difficulty breathing, shortness of breath, back pain, night sweats, pain with urination, increased urinary frequency, increased urinary urgency, blood in her urine or stool, syncope or a near syncopal episode, recent trauma or falls, bowel incontinence, bladder incontinence, or any other complaints at this time. Related Data Previous Rx's ?Medication ?Instructions ?Recorded prednisone 20 mg tablet 40 mg (2 x 20 mg) PO DAILY 5 days 02/05/23 #10 tabs hydrocortisone 1 % topical cream 1 appl topical BID PRN itching 1 02/16/23 week #28.35 grams hydrocortisone 1 % topical cream 1 appl topical BID PRN itching 02/28/23 #28.35 grams triamcinolone acetonide 0.1 % 1 appl topical BID #15 grams 02/28/23 topical cream cetirizine 10 mg tablet (Zyrtec) 10 mg PO DAILY PRN allergy 06/12/23 symptoms #10 tabs diphenhydramine HCl 25 mg capsule 25 mg PO BEDTIME PRN itching #14 06/12/23 (Benadryl) caps epinephrine 0.3 mg/0.3 mL 0.3 mg (0.3 mL) IM Q10M PRN 06/12/23 injection, auto-injector (EpiPen) anaphylaxis #2 ea prednisone 20 mg tablet 20 mg PO DAILY 5 days #5 tabs 06/12/23 cyclobenzaprine 10 mg tablet 10 mg PO TID PRN muscle spasm #20 06/27/23 tabs hydroxyzine HCl 25 mg tablet 25 mg PO QID PRN itching #20 tabs 06/27/23 diphenhydramine HCl 25 mg capsule 25 mg PO TID PRN itching 7 days 10/05/23 (Benadryl) #21 caps famotidine 20 mg tablet (Pepcid) 20 mg PO BID 7 days #14 tabs 10/05/23 prednisone 20 mg tablet 40 mg (2 x 20 mg) PO DAILY 5 days 10/05/23 #10 tabs ibuprofen 400 mg tablet 400 mg PO TID PRN fever or pain 12/18/23 #30 tabs prednisone 20 mg tablet 20 mg PO DAILY 7 days #7 tabs 03/16/24 Allergies Allergy/AdvReac Type Severity Reaction Status Date / Time No Known Allergies Allergy Verified 03/16/24 09:32 Review of Systems 2 Constitutional: Constitutional: Reports no additional constitutional complaints, Denies chills, Denies fever(s) and Denies night sweats Eyes: Eyes: Reports no additional eye complaints, Denies blurry vision, Denies change in vision, Denies diplopia, Denies eye discharge, Denies loss of vision and Denies eye pain ENT: Denies dizziness Cardiovascular: Cardiovascular: Reports no additional cardiovascular complaints, Reports chest pain, Denies lightheadedness, Denies Loss of Consciousness and Denies dyspnea Respiratory: Respiratory: Reports no additional respiratory complaints, Reports chest congestion and Denies dyspnea Gastrointestinal: Gastrointestinal: Reports no additional gastrointestinal complaints, Denies abdominal pain, Denies melena, Denies hematochezia, Denies change in bowel habits and Denies change in stool character Genitourinary: Genitourinary: Denies hematuria, Denies urinary frequency, Denies dysuria, Denies urinary incontinence, Denies urinary hesitancy and Denies urinary urgency Musculoskeletal: Musculoskeletal: Reports no additional musculoskeletal complaints, Denies numbness and Denies tingling Comments: left sided body pain Neurologic: Denies dizziness, Denies loss of vision, Denies numbness and Denies tingling Psychiatric: Psychiatric: Reports no additional psychiatric complaints Endocrine: Endocrine: Reports no additional endocrine complaints Hematologic/Lymphatic: Hematologic/Lymphatic: Reports no additional hematologic/lymphatic complaints Allergic/Immunologic: Allergic/Immunologic: Reports no additional allergic/immunologic complaints PMFSH Past Medical History Attestation statement: The following information was validated with the patient. Source: old records reviewed and nursing notes reviewed Social History Social History Advance Directives: No Advance Directives Information Provided: Yes Physical Exam 2 Vital Signs: Vital Signs: Last Vital Signs Temp 98.2 F 03/16/24 12:06 Pulse 85 03/16/24 12:06 Resp 20 03/16/24 12:06 BP 147/87 H 03/16/24 12:06 Pulse Ox 99 03/16/24 12:06 O2 Del Method Room Air 03/16/24 12:06 BMI result Body Mass Index 25.5 Const: General: cooperative, no acute distress, alert and awake Nutritional Appearance: well nourished Orientation/consciousness: patient oriented x3 Limitations: no limitations HEENT: Head: Yes normal to inspection and Yes atraumatic Ears: hearing grossly normal bilaterally and external ears normal General nose exam: Normal external nose present, no nasal discharge noted and no epistaxis Face and sinus: Yes normal facial exam, No abrasion and No laceration Mouth: Normal oral and palatal mucosa present, no drooling and no muffled voice Eyes: General: appearance normal, both eyes and all related structures P eriorbital: periorbital findings normal Eyelids: Yes eyelids normal C onjunctivae: conjunctivae normal Pupils: Equal, round and reactive pupils present EOM: EOMs intact bilaterally Neck: Neck: Yes normal visual inspection, Yes full ROM and Yes no lymphadenopathy Chest: Chest palpation & inspection: normal inspection of the chest Resp: Effort & Inspection: normal respiratory effort and able to speak in complete sentences GI: Inspection: Yes normal to inspection Neuro: General: patient oriented x3 and moves all extremities Cranial nerves: Yes Equal, round and reactive pupils present Cognition (Neuro): n ormal cognition Motor exam (neuro): 5/5 motor strength present throughout Extrem: General: Yes normal to inspection, Yes full ROM and Yes capillary refill normal Psych: Appearance: grossly normal Mental Status: mental status grossly normal Affect: normal affect Attitude: cooperative Thought process: N ormal thought process present Thought content: Normal thought content present Insight: Good insight present (Psych) Medical Decision Making Medical Decision Making MDM Narrative: Patient is a 63 year old assigned female at with a history of bulging discs presenting to the emergency department today with cramping chest pain and left sided body pain x1 month. Patient's physical exam was unremarkable. Patient's blood work was unremarkable. Patient's EKG was unremarkable. Patient's chest x-ray showed no acute process. I explained my physical exam findings as well as all test results to the patient. I answered all questions asked by the patient. I believe the patient's symptoms are secondary to the bulging discs in her back and musculoskeletal in nature. Patient has no neurological deficits and has a negative cardiac work up. I stressed the importance of the patient taking her medication as directed (either prescribed or as the over the counter packaging recommends). I stressed the importance of the patient following up with her primary care provider. I stressed the importance of the patient returning to the emergency department immediately if her symptoms were to worsen or if she were to develop any dizziness, shortness of breath, difficulty breathing, chest pain, blurry vision, loss of vision, nausea, vomiting, abdominal pain, fever, chills, back pain, or any other complaints. Patient verbalized agreement and understanding with this treatment plan and discharge. Differential Diagnosis Differential Diagnoses: The differential diagnosis associated with the presentation includes NSTEMI STEMI Body pain Musculoskeletal pain Chest pain Admission/Observation Consideration of admission/observation: Escalation of care including admission/observation considered Patient would have been admitted to the hospital had her work up had any findings where hospital admission was appropriate and her clinical presentation warranted hospital admission. Lab Data [facility] [place] Lab Attestation statement: I reviewed the patient's lab results. My interpretation of these results are in the [facility] [place] Rationale portion of this note. 03/16/24 10:05 03/16/24 10:05 Labs: Lab Results 03/16/24 Range/Units 10:05 WBC 6.2 (4.8-10.8) X10*3/uL RBC 4.44 (4.20-5.50) X10*6/uL Hgb 13.4 (12.0-16.0) g/dl Hct 40.5 (37.0-47.0) % MCV 91.2 (80.0-98.0) fL MCH 30.2 (27.0-33.0) pg MCHC 33.1 (31.0-35.0) g/dl RDW 13.5 (11.0-16.0) % Plt Count 330 (160-400) X10*3/uL MPV 8.9 L (9.4-12.3) fL Immature Gran % (Auto) 0.3 (0.0-0.4) % Neut % (Auto) 58.8 (45-73) % Lymph % (Auto) 32.8 (20-40) % [place] % (Auto) 7.9 (2-11) % Eos % (Auto) 0.2 (0-4) % Baso % (Auto) 0.0 (0-2) % Lymph # (Auto) 2.0 (1.2-4.9) X10*3/uL [place] # (Auto) 0.5 (0.1-1.2) X10*3/uL Eos # (Auto) 0.0 (0.0-0.4) X10*3/uL Baso # (Auto) 0.0 (0.0-0.2) X10*3/uL Abs Immat Gran (auto) 0.02 (0.00-0.03) X10*3/uL Absolute Neuts (auto) 3.6 (2.0-8.3) x10*3/uL Absolute Nucleated RBC 0.000 (0.0-0.012) X10*3/uL Nucleated RBC % (auto) 0.0 (0.0-0.2) /100WBC PT 11.8 (11.1-13.3) SEC INR 1.0 (0.9-1.1) Sodium 140 (135-145) mmol/L Potassium 4.1 D (3.3-5.1) mmol/L Chloride 107 (96-108) mmol/L Carbon Dioxide 27 (22-29) mmol/L Anion Gap 10 L (12-20) BUN 11 (9-16) mg/dL Creatinine 0.72 (0.5-1.4) mg/dL Estim Creat Clear Calc 76.4 Estimated GFR > 60 Random Glucose 118 H (60-115) mg/dL Calcium 9.7 (8.4-10.2) mg/dL Troponin I High Sens 5.0 (<3.5-17.0) ng/L Influenza Type A (PCR) NEGATIVE (Negative) Influenza Type B (PCR) NEGATIVE (Negative) RSV RNA Qual (PCR) NEGATIVE (Negative) SARS-CoV-2 RNA (RT-PCR) NEGATIVE (Negative) Independent Interpretation I performed an independent interpretation of an: EKG and Plain X-Ray Interpretation: My interpretation is in agreement with the radiologist's impression of this imaging study. L EXAMINATION: XR CHEST CLINICAL INFORMATION: Chest pain. COMPARISON: Chest radiograph dated 12/18/2023. TECHNIQUE: 2 views of the chest were obtained. FINDINGS: The lungs are clear. The cardiomediastinal silhouette is normal in size. There is no pleural effusion or pneumothorax. No acute osseous abnormality. XR/XR chest 2V IMPRESSION: No acute cardiopulmonary findings. Electronically signed by: Blake Castle MD 03/16/2024 11:52 AM EDT RP Dictated By: Blake Castle MD Signed By: Electronically signed by Blake Castle MD 03/16/24 1152 Vent. Rate: 075 BPM Atrial Rate: 075 BPM P-R Int: 154 ms QRS Dur: 084 ms QT Int: 392 ms P-R-T Axes: 032 -22 -12 degrees QTc Int: 437 ms Normal sinus rhythm Nonspecific T wave abnormality When compared with ECG of 18-DEC-2023 03:23, Vent. rate has decreased BY 43 BPM Nonspecific T wave abnormality now evident in Anterior leads T wave inversion now evident in Inferior leads Electronically Signed By:DAMIEN ROJASCP Dictated By: Damien Tomas DO Signed By: Electronically signed by Damien Tomas DO DD/ [id number] Radiology Impression Discussion of test interpretation with radiology: I have reviewed the radiologist's reading. Discharge Plan Discharge Clinical Impression: Musculoskeletal pain Patient Disposition: Home, Self-Care Instructions: Musculoskeletal Pain (ED) Additional Instructions: Follow up with your primary care provider. Return to the emergency department immediately if your symptoms worsen or if you develop any dizziness, shortness of breath, difficulty breathing, chest pain, blurry vision, loss of vision, nausea, vomiting, abdominal pain, fever, chills, back pain, or any other complaints. Kirk?seguimiento?con huber m?dico de atenci?n primaria. Acuda inmediatamente al servicio de urgencias si iban s?ntomas empeoran o si presenta falta de aliento, dificultad para respirar, dolor tor?cico, mareos, aturdimiento, dolor de espalda, dolor abdominal, fiebre, escalofr?os o cualquier otro s?ntoma. Prescriptions: New prednisone 20 mg tablet 20 mg PO DAILY 7 Days Qty: 7 0RF No Action prednisone 20 mg tablet 40 mg PO DAILY 5 Days Qty: 10 0RF hydrocortisone 1 % cream 1 appl topical BID PRN (Reason: itching) 7 Days Qty: 28.35 0RF hydrocortisone 1 % cream 1 appl topical BID PRN (Reason: itching) Qty: 28.35 0RF Rx Instructions: For itching to genital area triamcinolone acetonide 0.1 % cream 1 appl topical BID Qty: 15 0RF Rx Instructions: Apply to all areas of itching EXCEPT genital area prednisone 20 mg tablet 20 mg PO DAILY 5 Days Qty: 5 0RF cetirizine [Zyrtec] 10 mg tablet 10 mg PO DAILY PRN (Reason: allergy symptoms) Qty: 10 0RF diphenhydramine HCl [Benadryl] 25 mg capsule 25 mg PO BEDTIME PRN (Reason: itching) Qty: 14 0RF Rx Instructions: may repeat once in 30-60 minutes if not effective epinephrine [EpiPen] 0.3 mg/0.3 mL auto-injector 0.3 mg IM Q10M PRN (Reason: anaphylaxis) Qty: 2 0RF Rx Instructions: for 2 doses hydroxyzine HCl 25 mg tablet 25 mg PO QID PRN (Reason: itching) Qty: 20 0RF cyclobenzaprine 10 mg tablet 10 mg PO TID PRN (Reason: muscle spasm) Qty: 20 0RF diphenhydramine HCl [Benadryl] 25 mg capsule 25 mg PO TID PRN (Reason: itching) 7 Days Qty: 21 0RF prednisone 20 mg tablet 40 mg PO DAILY 5 Days Qty: 10 0RF famotidine [Pepcid] 20 mg tablet 20 mg PO BID 7 Days Qty: 14 0RF ibuprofen 400 mg tablet 400 mg PO TID PRN (Reason: fever or pain) Qty: 30 0RF Referrals: [facility] [Provider Group] (Call to establish and follow up with a primary care provider. If you already have a primary care provider, please follow up with them. Llame para establecer y hacer un seguimiento con un proveedor de atenci?n primaria. Si ya tiene un proveedor de atenci?n primaria, kirk un seguimiento con ?l.) [facility] [Provider Group] (Call to establish and follow up with a primary care provider. If you already have a primary care provider, please follow up with them. Llame para establecer y hacer un seguimiento con un proveedor de atenci?n primaria. Si ya tiene un proveedor de atenci?n primaria, kirk un seguimiento con ?l.) [facility] [Provider Group] (Call to establish and follow up with a primary care provider. If you already have a primary care provider, please follow up with them. Llame para establecer y hacer un seguimiento con un proveedor de atenci?n primaria. Si ya tiene un proveedor de atenci?n primaria, kirk un seguimiento con ?l.) Discharge Date/Time: 03/16/24 12:07 Print Language: Belgian
[2024-03-16 10:12] LABS: Eosinophils Percent Auto 0.2 % (0-4); Hematocrit 40.5 % (37.0-47.0); Hemoglobin 13.4 g/dl (12.0-16.0); Imm Gran Abs Auto 0.02 X10*3/uL (0.00-0.03); Imm Gran Pct Auto 0.3 % (0.0-0.4); Lymphocytes Percent Auto 32.8 % (20-40); Mean Corpuscular HGB Conc 33.1 g/dl (31.0-35.0); Mean Corpuscular Hemoglobin 30.2 pg (27.0-33.0); Mean Corpuscular Volume 91.2 fL (80.0-98.0); Mean Platelet Volume 8.9 fL (9.4-12.3); Monocytes Absolute Auto 0.5 X10*3/uL (0.1-1.2); Monocytes Percent Auto 7.9 % (2-11); Neutrophils Absolute Auto 3.6 x10*3/uL (2.0-8.3); Neutrophils Percent Auto 58.8 % (45-73); Platelet Count 330 X10*3/uL (160-400); Red Blood Count 4.44 X10*6/uL (4.20-5.50); Red Cell Distribution Width 13.5 % (11.0-16.0); White Blood Count 6.2 X10*3/uL (4.8-10.8)
[2024-03-16 10:21] LABS: Prothrombin Time 11.8 SEC (11.1-13.3)
[2024-03-16 10:31] LABS: Anion Gap 10 (12-20); Blood Urea Nitrogen 11 mg/dL (9-16); Calcium 9.7 mg/dL (8.4-10.2); Carbon Dioxide 27 mmol/L (22-29); Chloride 107 mmol/L (96-108); Creatinine Clr Calc Pharmacy 76.4; Estimated Glomerular Filt Rate > 60; Glucose Random 118 mg/dL (60-115); Potassium 4.1 mmol/L (3.3-5.1); Sodium 140 mmol/L (135-145)
[2024-03-16 10:48] LABS: Influenza A PCR NEGATIVE (Negative); Influenza B PCR NEGATIVE (Negative); Resp Syncy Virus RNA Qual PCR NEGATIVE (Negative); SARS COV2 PCR INHOUSE NEGATIVE (Negative)
[2024-03-16 12:06] VITALS: BP 147/87; PULSE 85; RESP 20; TEMP 36.8; O2SAT 99
== END 2024-03-16 12:07 | disposition home or self-care (01) ==
PROVIDERS: Emergency Provider Emergency Medicine
DX: R07.89 Other chest pain (principal); M79.10 Myalgia, unspecified site; Z03.818 Encounter for observation for suspected exposure to other biological agents ruled out; Z79.899 Other long term (current) drug therapy
CPT/HCPCS: 0241U; 36415; 71046; 80048; 84484; 85025; 85610; 93005; 99283

== ENCOUNTER 2024-03-30 18:24 | Emergency (ER) | payer MEDICAID, SELFPAY ==
--- NOTE | ~2024-03-30 | CT_ITS ---
EXAMINATION: CT CERVICAL SPINE WITHOUT CONTRAST CLINICAL INFORMATION: Left neck and shoulder pain. COMPARISON: None available. TECHNIQUE: Multidetector helical imaging of the cervical spine was obtained without intravenous contrast. Multiple axial reformats and coronal/sagittal reconstructions were created the technologist workstation for review. This CT examination was performed using dose optimization techniques as appropriate, variously including the following: *Automated exposure control. *Adjustment of mA and/or kV according to patient size (this includes techniques or standardized protocols for targeted exams where dose is matched to indication/reason for exam; i.e. extremities or head). *Use of iterative reconstruction technique. DLP: 342 mGy-cm FINDINGS: The atlantooccipital and atlantoaxial articulations remain well aligned. Straightening of the normal cervical lordosis. Otherwise, there is anatomic alignment of the vertebral bodies and posterior elements. No evidence of acute fracture or subluxation. The vertebral body heights are maintained. Moderate degenerative disc disease from C5-C7. Mild degenerative disc disease at all additional levels. There is no prevertebral soft tissue swelling. Mild heterogeneous enlargement of the thyroid gland. The remaining cervical soft tissues are within normal limits. The lung apices demonstrate no abnormalities. SPINAL LEVELS: C2-C3: Minimal disc-osteophyte complex. There is mild right and no left uncovertebral joint arthropathy. There is moderate left and no right facet joint arthropathy. There is no neural foraminal stenosis. There is no demonstrated spinal canal stenosis. C3-C4: Mild disc-osteophyte complex. There is mild right and no left uncovertebral joint arthropathy. There is moderate left and mild right facet joint arthropathy. There is no neural foraminal stenosis. There is no demonstrated spinal canal stenosis. C4-C5: Moderate disc-osteophyte complex. There is mild right and no left uncovertebral joint arthropathy. There is mild bilateral facet joint arthropathy. There is no neural foraminal stenosis. There is no demonstrated spinal canal stenosis. C5-C6: Moderate disc-osteophyte complex. There is moderate right worse than left uncovertebral joint arthropathy. There is mild bilateral facet joint arthropathy. There is moderate right and mild left neural foraminal stenosis. There appears to be mild spinal canal stenosis. C6-C7: Moderate disc-osteophyte complex. There is mild bilateral uncovertebral joint arthropathy. There is mild bilateral facet joint arthropathy. There is mild bilateral neural foraminal stenosis. There is no demonstrated spinal canal stenosis. C7-T1: Minimal. There is no uncovertebral joint arthropathy. There is mild bilateral facet joint arthropathy. There is no neural foraminal stenosis. There is no demonstrated spinal canal stenosis. CT/CT cervical spine wo IV con IMPRESSION: 1. No evidence of acute fracture or traumatic subluxation of the cervical spine. 2. Moderate multilevel degenerative spondyloarthropathy of the cervical spine as described in detail above. Most notably on this limited exam without intrathecal contrast, there appears to be mild spinal canal stenosis at C5-C6. Mild to moderate neural foraminal stenoses at C5-C6 and C6-C7. Electronically signed by: Geovani Rosas DO 03/30/2024 09:15 PM EDT
[2024-03-30 19:24] VITALS: BP 145/85; PULSE 96; RESP 18; TEMP 36.2; O2SAT 99; BMI 20.6
--- NOTE | 2024-03-30 19:24 | ED_ITS ---
HPI - General Adult General Chief complaint: General Medical Stated complaint: feet welling Time Seen by Provider: 03/30/24 21:44 Source: patient and lang interpreter Mode of arrival: ambulatory Limitations: no limitations History of Present Illness ED Provider: ROSAURA RAO narrative: 63 yo female with PMH of MSK pain, HLD, notes she came to visit from [place] 03/09 notes for 2 weeks her L body hurts to move and touch. Denies rash, insect bites, fevers, trauma, overuse. It hurts to move the whole area. She is not working. This has happened before. She has no medications at home to help her. complaint: body pain Onset (ago): week(s) (2) Location: left, upper extremity and lower extremity Radiation: non-radiation Severity: moderate Quality: aching Pain Consistency: intermittent Relieving factors: none Exacerbating factors: movement and other (palpations) Associated symptoms: denies other symptoms Treatments prior to arrival: NSAID Related Data Previous Rx's ?Medication ?Instructions ?Recorded prednisone 20 mg tablet 40 mg (2 x 20 mg) PO DAILY 5 days 02/05/23 #10 tabs hydrocortisone 1 % topical cream 1 appl topical BID PRN itching 1 02/16/23 week #28.35 grams hydrocortisone 1 % topical cream 1 appl topical BID PRN itching 02/28/23 #28.35 grams triamcinolone acetonide 0.1 % 1 appl topical BID #15 grams 02/28/23 topical cream cetirizine 10 mg tablet (Zyrtec) 10 mg PO DAILY PRN allergy 06/12/23 symptoms #10 tabs diphenhydramine HCl 25 mg capsule 25 mg PO BEDTIME PRN itching #14 06/12/23 (Benadryl) caps epinephrine 0.3 mg/0.3 mL 0.3 mg (0.3 mL) IM Q10M PRN 06/12/23 injection, auto-injector (EpiPen) anaphylaxis #2 ea prednisone 20 mg tablet 20 mg PO DAILY 5 days #5 tabs 06/12/23 cyclobenzaprine 10 mg tablet 10 mg PO TID PRN muscle spasm #20 06/27/23 tabs hydroxyzine HCl 25 mg tablet 25 mg PO QID PRN itching #20 tabs 06/27/23 diphenhydramine HCl 25 mg capsule 25 mg PO TID PRN itching 7 days 10/05/23 (Benadryl) #21 caps famotidine 20 mg tablet (Pepcid) 20 mg PO BID 7 days #14 tabs 10/05/23 prednisone 20 mg tablet 40 mg (2 x 20 mg) PO DAILY 5 days 10/05/23 #10 tabs ibuprofen 400 mg tablet 400 mg PO TID PRN fever or pain 12/18/23 #30 tabs prednisone 20 mg tablet 20 mg PO DAILY 7 days #7 tabs 03/16/24 cyclobenzaprine 10 mg tablet 10 mg PO TID PRN muscle spasm #20 03/30/24 tabs Allergies Allergy/AdvReac Type Severity Reaction Status Date / Time No Known Allergies Allergy Verified 03/30/24 19:28 Review of Systems 2 Review of Systems: Constitutional : No Weight loss, No Fever, No Chills, ENT/Mouth : No Hearing loss, No Ear Pain, No Nasal Congestion, No Sinus Pain, No Hoarseness, No sore throat, No Rhinorrhea, No Swallowing Difficulty Cardiovascular : No Chest Pain, No SOB Respiratory : No Cough, No Dyspnea Gastrointestinal : No Nausea, No Vomiting, No Diarrhea, No abdominal Pain, No Hematochezia, No Melena Genitourinary : No Dysuria, No Urinary Frequency, No Hematuria, No Urinary Incontinence, Musculoskeletal : positive myalgias Skin : No Skin Lesions, No rash Neuro : No Weakness, No Numbness, No Paresthesias, no loss of bowel or bladder incontinence, no saddle anesthesia All other systems reviewed and are negative [facility] Past Medical History Attestation statement: The following information was validated with the patient. Source: old records reviewed Medical History Hyperlipidemia Muscle pain, myofascial Social History Social History (Updated 03/30/24 @ 22:31 by Camila Rowland DO) Patient Tobacco Use Status: Tobacco use Unknown Physical Exam ED Vital Signs: Vital Signs - 24 hr 03/30/24 19:24 03/30/24 21:10 03/30/24 22:17 Temperature 97.2 F 98.3 F 97.8 F Pulse Rate 96 102 H 99 Respiratory Rate 18 14 14 Blood Pressure 145/85 H 146/88 H 143/93 H Pulse Oximetry 99 94 99 Oxygen Delivery Method Room Air Room Air BMI result Body Mass Index 20.6 Appearance: Alert. Oriented X3. No acute distress. ttp along L arm L leg, L shoulder, L trapezius, L chest wall - distal NV intact reproduces all pain Eyes: Pupils equal, round and reactive to light. ENT: Pharynx normal. Neck: Normal inspection. Neck supple. CVS: Normal heart rate and rhythm. Pulses normal. Respiratory: No respiratory distress. Breath sounds normal. Abdomen: Soft and nontender. Skin: Skin warm and dry. Normal skin color. Normal skin turgor. Extremities: No lower extremity edema. No calf ttp Neuro: Oriented X 3. No motor deficit. No sensory deficit. Course Course Course Narrative: This is a rapid medical exam performed by Kevon Shelley NP: Additional HPI, ROS, PE not included below will be deferred to primary provider. Patient is a 63-year-old female presenting with two weeks of generalized body aches/cramping to left side. States symptoms are getting worse, especially to left neck/shoulder area. Using ice, Tylenol, ibuprofen with little relief. Denies rashes. Plan: viral serology, basic labs, c spine CT Medications Administered Discontinued Medications Generic Name Dose Route Start Last Admin Trade Name Freq PRN Reason Stop Dose Admin Cyclobenzaprine HCl 10 mg 03/30/24 21:52 03/30/24 22:23 Cyclobenzaprine Hcl 10 Mg Tablet PO 03/30/24 21:53 10 mg ONCE ONE Administration Medical Decision Making Medical Decision Making [facility] Narrative: 63 yo female with PMH of MSK pain, HLD here with atraumatic reproduceable MSK pain at this time not toxic appearing pain is reproduceable will need basic labs, viral panel she is NV intact no red flags on exam will start on flexeril and likely DC home Differential Diagnosis Differential Diagnoses: The differential diagnosis associated with the presentation includes MSK pain, viral syndrome Admission/Observation Consideration of admission/observation: Escalation of care including admission/observation considered work up negative seen here for same in past okay to DC home Lab Data [facility] Lab Attestation statement: I reviewed the patient's lab results. 03/30/24 19:52 03/30/24 19:52 Labs: Lab Results 03/30/24 Range/Units 19:52 WBC 8.3 (4.8-10.8) X10*3/uL RBC 4.21 (4.20-5.50) X10*6/uL Hgb 12.9 (12.0-16.0) g/dl Hct 38.1 (37.0-47.0) % MCV 90.5 (80.0-98.0) fL MCH 30.6 (27.0-33.0) pg MCHC 33.9 (31.0-35.0) g/dl RDW 13.1 (11.0-16.0) % Plt Count 335 (160-400) X10*3/uL MPV 9.4 (9.4-12.3) fL Immature Gran % (Auto) 0.8 H (0.0-0.4) % Neut % (Auto) 63.2 (45-73) % Lymph % (Auto) 28.6 (20-40) % [place] % (Auto) 7.3 (2-11) % Eos % (Auto) 0.0 (0-4) % Baso % (Auto) 0.1 (0-2) % Lymph # (Auto) 2.4 (1.2-4.9) X10*3/uL [place] # (Auto) 0.6 (0.1-1.2) X10*3/uL Eos # (Auto) 0.0 (0.0-0.4) X10*3/uL Baso # (Auto) 0.0 (0.0-0.2) X10*3/uL Abs Immat Gran (auto) 0.07 H (0.00-0.03) X10*3/uL Absolute Neuts (auto) 5.2 (2.0-8.3) x10*3/uL Absolute Nucleated RBC 0.000 (0.0-0.012) X10*3/uL Nucleated RBC % (auto) 0.0 (0.0-0.2) /100WBC Sodium 142 (135-145) mmol/L Potassium 3.9 (3.3-5.1) mmol/L Chloride 107 (96-108) mmol/L Carbon Dioxide 26 (22-29) mmol/L Anion Gap 13 (12-20) BUN 14 (9-16) mg/dL Creatinine 0.84 (0.5-1.4) mg/dL Estim Creat Clear Calc 59.6 Estimated GFR > 60 Random Glucose 125 H (60-115) mg/dL Calcium 9.4 (8.4-10.2) mg/dL Total Bilirubin 0.2 (0.0-1.0) mg/dL AST 16 (5-31) U/L ALT 21 (0-31) U/L Alkaline Phosphatase 75 (39-117) U/L Total Protein 7.8 (6.5-8.0) g/dL Albumin 4.5 (3.5-5.0) g/dL Influenza Type A (PCR) NEGATIVE (Negative) Influenza Type B (PCR) NEGATIVE (Negative) RSV RNA Qual (PCR) NEGATIVE (Negative) SARS-CoV-2 RNA (RT-PCR) NEGATIVE (Negative) External Record Review External record reviewed: Inpatient record Prescription Management I considered prescription management with: Pain Medication and Other Discharge Plan Discharge Clinical Impression: Muscle pain, myofascial Patient Disposition: Home, Self-Care Instructions: Musculoskeletal Pain (ED) Additional Instructions: labs reassuring CT scan no acute finding you have arthritis and disc disease return for any worsening symptoms or concerns Prescriptions: New cyclobenzaprine 10 mg tablet 10 mg PO TID PRN (Reason: muscle spasm) Qty: 20 0RF No Action prednisone 20 mg tablet 40 mg PO DAILY 5 Days Qty: 10 0RF hydrocortisone 1 % cream 1 appl topical BID PRN (Reason: itching) 7 Days Qty: 28.35 0RF hydrocortisone 1 % cream 1 appl topical BID PRN (Reason: itching) Qty: 28.35 0RF Rx Instructions: For itching to genital area triamcinolone acetonide 0.1 % cream 1 appl topical BID Qty: 15 0RF Rx Instructions: Apply to all areas of itching EXCEPT genital area prednisone 20 mg tablet 20 mg PO DAILY 5 Days Qty: 5 0RF cetirizine [Zyrtec] 10 mg tablet 10 mg PO DAILY PRN (Reason: allergy symptoms) Qty: 10 0RF diphenhydramine HCl [Benadryl] 25 mg capsule 25 mg PO BEDTIME PRN (Reason: itching) Qty: 14 0RF Rx Instructions: may repeat once in 30-60 minutes if not effective epinephrine [EpiPen] 0.3 mg/0.3 mL auto-injector 0.3 mg IM Q10M PRN (Reason: anaphylaxis) Qty: 2 0RF Rx Instructions: for 2 doses hydroxyzine HCl 25 mg tablet 25 mg PO QID PRN (Reason: itching) Qty: 20 0RF cyclobenzaprine 10 mg tablet 10 mg PO TID PRN (Reason: muscle spasm) Qty: 20 0RF diphenhydramine HCl [Benadryl] 25 mg capsule 25 mg PO TID PRN (Reason: itching) 7 Days Qty: 21 0RF prednisone 20 mg tablet 40 mg PO DAILY 5 Days Qty: 10 0RF famotidine [Pepcid] 20 mg tablet 20 mg PO BID 7 Days Qty: 14 0RF ibuprofen 400 mg tablet 400 mg PO TID PRN (Reason: fever or pain) Qty: 30 0RF prednisone 20 mg tablet 20 mg PO DAILY 7 Days Qty: 7 0RF Print Language: Surinamese
[2024-03-30 20:01] LABS: MANUAL DIFF FLAG NO
[2024-03-30 20:03] LABS: Basophils Percent Auto 0.1 % (0-2); Hematocrit 38.1 % (37.0-47.0); Hemoglobin 12.9 g/dl (12.0-16.0); Imm Gran Abs Auto 0.07 X10*3/uL (0.00-0.03); Imm Gran Pct Auto 0.8 % (0.0-0.4); Lymphocytes Absolute Auto 2.4 X10*3/uL (1.2-4.9); Lymphocytes Percent Auto 28.6 % (20-40); Mean Corpuscular HGB Conc 33.9 g/dl (31.0-35.0); Mean Corpuscular Hemoglobin 30.6 pg (27.0-33.0); Mean Corpuscular Volume 90.5 fL (80.0-98.0); Mean Platelet Volume 9.4 fL (9.4-12.3); Monocytes Absolute Auto 0.6 X10*3/uL (0.1-1.2); Monocytes Percent Auto 7.3 % (2-11); Neutrophils Absolute Auto 5.2 x10*3/uL (2.0-8.3); Neutrophils Percent Auto 63.2 % (45-73); Platelet Count 335 X10*3/uL (160-400); Red Blood Count 4.21 X10*6/uL (4.20-5.50); Red Cell Distribution Width 13.1 % (11.0-16.0); White Blood Count 8.3 X10*3/uL (4.8-10.8)
[2024-03-30 20:24] LABS: Alanine Aminotransferase 21 U/L (0-31); Albumin Level 4.5 g/dL (3.5-5.0); Alkaline Phosphatase 75 U/L (39-117); Anion Gap 13 (12-20); Aspartate Amino Transferase 16 U/L (5-31); Bilirubin Total 0.2 mg/dL (0.0-1.0); Blood Urea Nitrogen 14 mg/dL (9-16); Calcium 9.4 mg/dL (8.4-10.2); Carbon Dioxide 26 mmol/L (22-29); Chloride 107 mmol/L (96-108); Creatinine Clr Calc Pharmacy 59.6; Estimated Glomerular Filt Rate > 60; Glucose Random 125 mg/dL (60-115); Potassium 3.9 mmol/L (3.3-5.1); Sodium 142 mmol/L (135-145); Total Protein 7.8 g/dL (6.5-8.0)
[2024-03-30 20:44] LABS: Influenza A PCR NEGATIVE (Negative); Influenza B PCR NEGATIVE (Negative); Resp Syncy Virus RNA Qual PCR NEGATIVE (Negative); SARS COV2 PCR INHOUSE NEGATIVE (Negative)
[2024-03-30 21:10] VITALS: BP 146/88; PULSE 102; RESP 14; TEMP 36.8; O2SAT 94
[2024-03-30 22:17] VITALS: BP 143/93; PULSE 99; RESP 14; TEMP 36.6; O2SAT 99
[2024-03-30] MEDS: Cyclobenzaprine HCl 10 MG TABLET PO (22:23)
[2024-03-30 22:25] VITALS: BP 143/93; PULSE 99; RESP 14; TEMP 36.6; O2SAT 99
== END 2024-03-30 22:25 | disposition home or self-care (01) ==
PROVIDERS: Registered Nurse Emergency; Emergency Provider Emergency Medicine
DX: M79.18 Myalgia, other site (principal); R53.81 Other malaise; Z03.818 Encounter for observation for suspected exposure to other biological agents ruled out; Z79.899 Other long term (current) drug therapy
CPT/HCPCS: 0241U; 72125; 80053; 85025; 99283; 99284

== ENCOUNTER 2024-04-14 09:33 | Emergency (ER) | payer MEDICAID, SELFPAY ==
--- NOTE | ~2024-04-14 | XR_ITS ---
EXAMINATION: XR LUMBOSACRAL SPINE CLINICAL INFORMATION: Sciatica and left lower back pain COMPARISON: None available. TECHNIQUE: Three views of the lumbosacral spine. FINDINGS: Moderate degenerative changes are present at the L4-L5 and to a lesser extent L5-S1 disc spaces with narrowing sclerosis and endplate osteophytes. No bony destructive lesions, fractures or subluxations are seen. Phleboliths are noted in the pelvis. Surgical clips are present in the gallbladder fossa. XR/XR lumbar spine 2-3V IMPRESSION: Degenerative changes L4-L5 and L5-S1. Electronically signed by: Oliver Mello MD 04/14/2024 02:40 PM EDT
--- NOTE | ~2024-04-14 | US_ITS ---
EXAMINATION: US TRIPLEX LOWER EXTREMITY, LEFT CLINICAL INFORMATION: Left lower extremity pain COMPARISON: None available. TECHNIQUE: Color-flow triplex imaging with spectral analysis and compression Doppler were performed on the left lower extremity. FINDINGS: Respiratory variation, normal compression and augmented flow are noted throughout the left lower extremity. The visualized common femoral vein, superficial femoral vein, profunda femoral vein, popliteal vein and midcalf peroneal and posterior tibial venous segments show no evidence of deep venous thrombosis. 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 There is no Oh's cyst. US/US venous duplex LE LT IMPRESSION: No evidence of deep venous thrombosis involving the left lower extremity. Electronically signed by: Bo Patricio DO 04/14/2024 02:39 PM EDT
[2024-04-14 09:48] VITALS: BP 130/81; PULSE 85; RESP 16; TEMP 36.7; O2SAT 100; BMI 31.1
--- NOTE | 2024-04-14 11:28 | ED.LOWEXIN ---
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 Reports pain extends from low back down her left lower extremity. Reports the extremity feels heavy. Admits pain in her left lower extremity worsened following a flight home from [place] 3 days ago. Pain is worse with ambulation. Not on AC. No history of VTE. Denies calf pain. Denies chest pain, shortness of breath, hemoptysis. Denies injury, trauma or fall. Denies heavy lifting or exercise. Denies IV drug use. Denies numbness/tingling/weakness down the lower extremities, bowel or bladder incontinence or retention, saddle anesthesia, dysuria, hematuria. Related Data Previous Rx's ?Medication ?Instructions ?Recorded prednisone 20 mg tablet 40 mg (2 x 20 mg) PO DAILY 5 days 02/05/23 #10 tabs hydrocortisone 1 % topical cream 1 appl topical BID PRN itching 1 02/16/23 week #28.35 grams hydrocortisone 1 % topical cream 1 appl topical BID PRN itching 02/28/23 #28.35 grams triamcinolone acetonide 0.1 % 1 appl topical BID #15 grams 02/28/23 topical cream cetirizine 10 mg tablet (Zyrtec) 10 mg PO DAILY PRN allergy 06/12/23 symptoms #10 tabs diphenhydramine HCl 25 mg capsule 25 mg PO BEDTIME PRN itching #14 06/12/23 (Benadryl) caps epinephrine 0.3 mg/0.3 mL 0.3 mg (0.3 mL) IM Q10M PRN 06/12/23 injection, auto-injector (EpiPen) anaphylaxis #2 ea prednisone 20 mg tablet 20 mg PO DAILY 5 days #5 tabs 06/12/23 cyclobenzaprine 10 mg tablet 10 mg PO TID PRN muscle spasm #20 06/27/23 tabs hydroxyzine HCl 25 mg tablet 25 mg PO QID PRN itching #20 tabs 06/27/23 diphenhydramine HCl 25 mg capsule 25 mg PO TID PRN itching 7 days 10/05/23 (Benadryl) #21 caps famotidine 20 mg tablet (Pepcid) 20 mg PO BID 7 days #14 tabs 10/05/23 prednisone 20 mg tablet 40 mg (2 x 20 mg) PO DAILY 5 days 10/05/23 #10 tabs ibuprofen 400 mg tablet 400 mg PO TID PRN fever or pain 12/18/23 #30 tabs prednisone 20 mg tablet 20 mg PO DAILY 7 days #7 tabs 03/16/24 cyclobenzaprine 10 mg tablet 10 mg PO TID PRN muscle spasm #20 03/30/24 tabs lidocaine 5 % topical patch 1 patch topical DAILY #15 ea 04/14/24 (Lidoderm) Allergies Allergy/AdvReac Type Severity Reaction Status Date / Time No Known Allergies Allergy Verified 04/14/24 09:49 Review of Systems Review of Systems: Constitutional: No fever, chills, fatigue, night sweats, weight changes ENT/Mouth: No ear pain, hearing loss, nasal congestion, sinus pain, rhinorrhea, sore throat Eyes: No eye pain, swelling, redness, vision changes, discharge Cardio: No chest pain, palpitations, BALDERAS, orthopnea, peripheral edema Pulm: No SOB, cough, sputum, wheezing, dyspnea, hemoptysis GI: No nausea, vomiting, hematemesis, abdominal pain, diarrhea, constipation, hematochezia, melena : No irregular bleeding, dysuria, frequency, urgency, hesitancy, hematuria, flank pain, urinary flow changes, urinary incontinence or retention MSK: No back pain, neck pain, joint pain, myalgias, +LLE pain Skin: No lesions, rashes Neuro: No weakness, numbness, paresthesias, LOC, dizziness, headache Psych: No anxiety/panic, depression, SI/HI, AH/VH All other systems reviewed and are negative. [facility] Past Medical History Attestation statement: The following information was validated with the patient. Source: old records reviewed and nursing notes reviewed Medical History Hyperlipidemia Muscle pain, myofascial Social History Social History Patient Tobacco Use Status: Tobacco use Unknown Advance Directives: No Advance Directives Information Provided: Yes Do you have a plan to hurt others: No Plan Physical Exam Vital Signs: Vital Signs: Last Vital Signs Temp 97.1 F 04/14/24 15:15 Pulse 81 04/14/24 15:15 Resp 18 04/14/24 15:15 BP 131/85 04/14/24 15:15 Pulse Ox 97 04/14/24 15:15 O2 Del Method Room Air 04/14/24 15:15 BMI result Body Mass Index 31.1 Vital signs stable General: Well appearing, in no acute distress. Skin: Warm, dry, intact. No rashes or lesions. Head: Normocephalic, atraumatic. EENT: Hearing is intact b/l. Conjunctiva clear. PERRLA. EOM intact. Moist mucous membranes.? Neck: Supple without LAD. FROM. Trachea midline.? Cardiac: Chest wall symmetric. RRR. Lungs: Normal respiratory effort without accessory muscle use. CTA bilaterally. Back: No midline spinous or paraspinal tenderness. No step off deformity. Ext: +LLE without noted joint swelling or tenderness. no overlying skin changes. no calf tenderness. 2+ PT/DP/popliteal pulse intact. Ambulating with steady gait. 2+ patellar DTRs intact bilaterally. Neuro: AOx3. Normal speech. Sensation and strength intact throughout. Psych: Appropriate mood and affect. Responds appropriately to questions. Course Course Course Narrative: 1500 -- venous duplex without evidence of DVT. X-ray lumbar spine showing moderate degenerative changes at L4/L5 and to a lesser extent L5/S1, disc spaces with narrowing sclerosis and endplate osteophytes. No bony destructive lesions, fracture, subluxation. There are phleboliths noted within the pelvis which may be cause of patient's pain although less likely. > discussed results with patient and son. will send home with lido patches. Patient has remained stable throughout ED visit today. Discussed worrisome signs and symptoms and when to return to the ED. All questions answered at this time. Patient is agreeable with disposition and stable for discharge. Medications Administered Discontinued Medications Generic Name Dose Route Start Last Admin Trade Name Freq PRN Reason Stop Dose Admin Acetaminophen 975 mg 10/17/24 11:45 04/14/24 11:53 Acetaminophen 325 Mg Tablet PO 04/14/24 11:46 975 mg ONCE ONE Administration Lidocaine 1 patch 04/14/24 11:45 04/14/24 11:54 Lidocaine 4 % Patch Adh..Patch TRANSDERMA 04/14/24 11:46 1 patch ONCE ONE Administration Protocol Medical Decision Making Medical Decision Making MDM Narrative: 63 year old Nepali-speaking female with past medical history significant for HDL on 81 mg aspirin daily presents to the ED today for evaluation of left lower extremity pain x2 months, worsening x3 days. Vital signs stable. Not hypoxic or tachycardic. Exam is nonfocal. Slightly tender to palpation over the left lumbar paraspinal musculature without palpable spasm. No midline spinous tenderness or step-off deformity. Sensation intact to light touch throughout. Neurovascularly intact distally. Strength 5/5 intact throughout. Ambulating with steady gait. Negative straight leg raise. LLE without deformity, tenderness, swelling. no calf tenderness b/l. Differential diagnosis includes MSK sprain/strain, arthritis, sciatica, disc herniation, DVT. I do not have concern for acute arterial occlusion, nv compromise, or threat to limb. Presentation not consistent with cauda equina, Guillain-Austin, epidural abscess, cord compression. Plan for xray lumbar spine, venous duplex, pain control, and re-evaluation. Differential Diagnosis Differential Diagnoses: The differential diagnosis associated with the presentation includes As above Admission/Observation Not indicated Independent Interpretation I performed an independent interpretation of an: Plain X-Ray and Ultrasound Interpretation: Venous duplex without DVT, agree with radiologist's interpretation. XR lumbar spine without fracture or subluxation, agree with radiologist's interpretation. Radiology Impression Discussion of test interpretation with radiology: I have reviewed the radiologist's reading. Radiologist Impression: EXAMINATION: US TRIPLEX LOWER EXTREMITY, LEFT CLINICAL INFORMATION: Left lower extremity pain COMPARISON: None available. TECHNIQUE: Color-flow triplex imaging with spectral analysis and compression Doppler were performed on the left lower extremity. FINDINGS: Respiratory variation, normal compression and augmented flow are noted throughout the left lower extremity. The visualized common femoral vein, superficial femoral vein, profunda femoral vein, popliteal vein and midcalf peroneal and posterior tibial venous segments show no evidence of deep venous thrombosis. 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 There is no Oh's cyst. US/US venous duplex LE LT IMPRESSION: No evidence of deep venous thrombosis involving the left lower extremity. Electronically signed by: Bo Patricio DO 04/14/2024 02:39 PM EDT RP EXAMINATION: XR LUMBOSACRAL SPINE CLINICAL INFORMATION: Sciatica and left lower back pain COMPARISON: None available. TECHNIQUE: Three views of the lumbosacral spine. FINDINGS: Moderate degenerative changes are present at the L4-L5 and to a lesser extent L5-S1 disc spaces with narrowing sclerosis and endplate osteophytes. No bony destructive lesions, fractures or subluxations are seen. Phleboliths are noted in the pelvis. Surgical clips are present in the gallbladder fossa. XR/XR lumbar spine 2-3V IMPRESSION: Degenerative changes L4-L5 and L5-S1. Electronically signed by: Oliver Mello MD 04/14/2024 02:40 PM EDT RP Independent Historian Clinical information obtained from an independent historian. History obtained from or confirmed by: Other (Son) External Record Review External record reviewed: Inpatient record Prescription Management I considered prescription management with: Pain Medication Chronic Conditions Patient?s care impacted by: Other (HDL) Social Determinants Patient?s care significantly limited by Social Determinants of Health including: Other Social Determinant of Health Critical Care Time Critical Care Time Critical Care Time: No Discharge Plan Discharge Clinical Impression: Left leg pain Patient Disposition: Home, Self-Care Instructions: Leg Cramps (ED), Leg Pain (ED) Additional Instructions: The x-ray of your low back shows degenerative changes, no fracture. The ultrasound of your left leg is normal. No evidence of clots or cysts. I recommend you take 600mg ibuprofen every 6 hours or Tylenol 650mg every 6 hours as needed for pain. If needed, you can alternate these medications so that you take one medication every 3 hours. For example, at noon take ibuprofen, then at 3pm take Tylenol, then at 6pm take ibuprofen. Avoid bending, lifting, or twisting. Use ice several times per day for 20 minutes at a time for the next 48 hours and then change to heat. Lidoderm patches are numbing patches. Apply to painful areas. Make sure you are staying well hydrated. Please schedule an appointment for follow-up with your primary care provider this week for further evaluation of your symptoms. Return to the Emergency Department if you experience worsening back pain, difficulty walking, fevers, numbness, tingling, incontinence, or any other concerning symptoms. In the case of an emergency call 911. Prescriptions: New lidocaine [Lidoderm] 5 % adhesive patch,medicated 1 patch topical DAILY Qty: 15 0RF Rx Instructions: leave on most painful area for up to 12 hrs No Action prednisone 20 mg tablet 40 mg PO DAILY 5 Days Qty: 10 0RF hydrocortisone 1 % cream 1 appl topical BID PRN (Reason: itching) 7 Days Qty: 28.35 0RF hydrocortisone 1 % cream 1 appl topical BID PRN (Reason: itching) Qty: 28.35 0RF Rx Instructions: For itching to genital area triamcinolone acetonide 0.1 % cream 1 appl topical BID Qty: 15 0RF Rx Instructions: Apply to all areas of itching EXCEPT genital area prednisone 20 mg tablet 20 mg PO DAILY 5 Days Qty: 5 0RF cetirizine [Zyrtec] 10 mg tablet 10 mg PO DAILY PRN (Reason: allergy symptoms) Qty: 10 0RF diphenhydramine HCl [Benadryl] 25 mg capsule 25 mg PO BEDTIME PRN (Reason: itching) Qty: 14 0RF Rx Instructions: may repeat once in 30-60 minutes if not effective epinephrine [EpiPen] 0.3 mg/0.3 mL auto-injector 0.3 mg IM Q10M PRN (Reason: anaphylaxis) Qty: 2 0RF Rx Instructions: for 2 doses hydroxyzine HCl 25 mg tablet 25 mg PO QID PRN (Reason: itching) Qty: 20 0RF cyclobenzaprine 10 mg tablet 10 mg PO TID PRN (Reason: muscle spasm) Qty: 20 0RF diphenhydramine HCl [Benadryl] 25 mg capsule 25 mg PO TID PRN (Reason: itching) 7 Days Qty: 21 0RF prednisone 20 mg tablet 40 mg PO DAILY 5 Days Qty: 10 0RF famotidine [Pepcid] 20 mg tablet 20 mg PO BID 7 Days Qty: 14 0RF ibuprofen 400 mg tablet 400 mg PO TID PRN (Reason: fever or pain) Qty: 30 0RF prednisone 20 mg tablet 20 mg PO DAILY 7 Days Qty: 7 0RF cyclobenzaprine 10 mg tablet 10 mg PO TID PRN (Reason: muscle spasm) Qty: 20 0RF Referrals: [facility] [facility] [place]Provider Group] [facility] [place] [facility] [Provider Group] [facility] [place] [facility] [Provider Group] Discharge Date/Time: 04/14/24 15:15 Print Language: Nepali
[2024-04-14] MEDS: Acetaminophen 325 MG TABLET 975 MG PO (11:53)
[2024-04-14] MEDS: Lidocaine 4 % Patch ADH..PATCH 1 PATCH TRANSDERMA (11:54)
[2024-04-14 15:15] VITALS: BP 131/85; PULSE 81; RESP 18; TEMP 36.2; O2SAT 97
== END 2024-04-14 15:15 | disposition home or self-care (01) ==
PROVIDERS: Emergency Provider Emergency Medicine
DX: M79.605 Pain in left leg (principal); M54.50 Low back pain, unspecified; R60.0 Localized edema
CPT/HCPCS: 72100; 93971; 99283; 99284

== ENCOUNTER 2024-09-26 08:28 | Emergency (ER) | payer MEDICAID, SELFPAY ==
--- NOTE | ~2024-09-26 | XR_ITS ---
EXAMINATION: XR SHOULDER 2 OR MORE VIEWS LEFT HISTORY: pain COMPARISON: There are no prior studies available for comparison. FINDINGS: Three views of the left shoulder are submitted. Osseous mineralization is normal. There is no fracture or dislocation. The glenohumeral and acromioclavicular joint spaces are preserved. A curvilinear soft tissue density adjacent to the acromion may be related to the rotator cuff. XR/XR shoulder LT min 2V IMPRESSION: Possible rotator cuff calcification. Otherwise unremarkable examination of the left shoulder. Electronically signed by: Sergo Hairston MD 09/26/2024 09:37 AM EDT
[2024-09-26 08:56] VITALS: BP 118/69; PULSE 79; RESP 16; TEMP 36.3; O2SAT 98; BMI 28.9
[2024-09-26 09:16] LABS: Appearance Urine Clear; Color Urine Yellow; Glucose Urine UA Negative (Negative); Leukocyte Esterase Urine Negative (Negative); Nitrite Urine Negative (Negative); Specific Gravity - Urine >= 1.030 (1.005-1.025); Urine Blood Negative (Negative); Urine Ketones Trace mg/dL (Negative); Urine Protein Negative (Neg-Trace)
[2024-09-26 09:18] LABS: Bacteria Urine Trace (None Seen); Hyaline Casts Urine 0-2 /LPF (0-2); RBC Urine 0-2 /HPF (0-2); WBC Urine 0-5 /HPF (0-5)
--- NOTE | 2024-09-26 10:39 | ED_ITS ---
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 Cameron HPI Narrative: 64-year-old female came in for evaluation of left shoulder pain x3 days, patient declined any injury, no fall, no heavy lifting. Patient been getting this problem intermittently throughout her life. patient can not raise her left arm above her shoulder because of the pain, no fever, no chills. Patient has no flank pain, no dysuria, no frequency urination. Related Data Previous Rx's ?Medication ?Instructions ?Recorded prednisone 20 mg tablet 40 mg (2 x 20 mg) PO DAILY 5 days 02/05/23 #10 tabs hydrocortisone 1 % topical cream 1 appl topical BID PRN itching 1 02/16/23 week #28.35 grams hydrocortisone 1 % topical cream 1 appl topical BID PRN itching 02/28/23 #28.35 grams triamcinolone acetonide 0.1 % 1 appl topical BID #15 grams 02/28/23 topical cream cetirizine 10 mg tablet (Zyrtec) 10 mg PO DAILY PRN allergy 06/12/23 symptoms #10 tabs diphenhydramine HCl 25 mg capsule 25 mg PO BEDTIME PRN itching #14 06/12/23 (Benadryl) caps epinephrine 0.3 mg/0.3 mL 0.3 mg (0.3 mL) IM Q10M PRN 06/12/23 injection, auto-injector (EpiPen) anaphylaxis #2 ea prednisone 20 mg tablet 20 mg PO DAILY 5 days #5 tabs 06/12/23 cyclobenzaprine 10 mg tablet 10 mg PO TID PRN muscle spasm #20 06/27/23 tabs hydroxyzine HCl 25 mg tablet 25 mg PO QID PRN itching #20 tabs 06/27/23 diphenhydramine HCl 25 mg capsule 25 mg PO TID PRN itching 7 days 10/05/23 (Benadryl) #21 caps famotidine 20 mg tablet (Pepcid) 20 mg PO BID 7 days #14 tabs 10/05/23 prednisone 20 mg tablet 40 mg (2 x 20 mg) PO DAILY 5 days 10/05/23 #10 tabs ibuprofen 400 mg tablet 400 mg PO TID PRN fever or pain 12/18/23 #30 tabs prednisone 20 mg tablet 20 mg PO DAILY 7 days #7 tabs 03/16/24 cyclobenzaprine 10 mg tablet 10 mg PO TID PRN muscle spasm #20 03/30/24 tabs lidocaine 5 % topical patch 1 patch topical DAILY #15 ea 04/14/24 (Lidoderm) ibuprofen 400 mg tablet 400 mg PO Q8H PRN pain #10 tabs 09/26/24 Allergies Allergy/AdvReac Type Severity Reaction Status Date / Time No Known Allergies Allergy Verified 09/26/24 08:58 Review of Systems Review of Systems: all other systems are reviewed and are negative Constitutional: Reports as per HPI and Reports no additional constitutional complaints Eyes: Reports as per HPI and Reports no additional eye complaints Reports system reviewed and no additional complaints, except as documented Cardiovascular: Reports as per HPI and Reports no additional cardiovascular complaints Respiratory: Reports as per HPI and Reports no additional respiratory complaints Gastrointestinal: Reports as per HPI and Reports no additional gastrointestinal complaints Genitourinary: Reports no additional female genitourinary complaints Musculoskeletal: Reports no additional musculoskeletal complaints Skin/Breast: Reports system reviewed and no additional complaints, except as docu Psychiatric: Reports no additional psychiatric complaints Endocrine: Reports no additional endocrine complaints Hematologic/Lymphatic: Reports no additional hematologic/lymphatic complaints Allergic/Immunologic: Reports no additional allergic/immunologic complaints Reports system reviewed and no additional complaints, except as documented and Reports Abnormal speech present PMFSH Past Medical History Medical History Hyperlipidemia Muscle pain, myofascial Social History Social History Patient Tobacco Use Status: Tobacco use Unknown Advance Directives: No Advance Directives Information Provided: Yes Physical Exam Vital Signs: Vital Signs: Last Vital Signs Temp 97.3 F 09/26/24 08:56 Pulse 79 09/26/24 08:56 Resp 16 09/26/24 08:56 BP 118/69 09/26/24 08:56 Pulse Ox 98 09/26/24 08:56 O2 Del Method Room Air 09/26/24 08:56 BMI result Body Mass Index 28.9 Vital signs have been reviewed and appear to be correct. Blood pressure normal. Heart rate normal. Respiratory rate normal. Temperature normal. Oxygen saturation normal. Appearance: Alert. Oriented X3. No acute distress. Head: Normal external exam. Normocephalic. Atraumatic. No Branch signs noted. No raccoon eyes noted Eyes: PERRLA. EOMI. Conjunctiva and sclera normal. Eyelids normal. ENT: TM's Normal. Pharynx normal. Uvula midline. Moist mucous membranes. No trismus noted. No drooling noted. No muffled voice noted. Neck: Normal inspection. Neck supple. FROM. No adenopathy. Thyroid Normal. No meningeal signs. No neck mass noted. CVS: Normal heart rate and rhythm. Heart sound normal. No murmurs noted. Pulses normal throughout. Respiratory: No respiratory distress. Painless inspiration. Breath sounds normal. No wheezes/rales/rhonchi noted. Chest nontender. No accessory muscle usage noted or decreased air movement noted. Abdomen: Soft and nontender. Bowel sounds normal in all 4 quadrants. No distention noted. No organomegaly noted. No visible injury noted. Back: No CVA tenderness. Full range of motion noted. Skin: Skin warm and dry. Normal skin color. Normal skin turgor. No rashes/lesions/lacerations noted. Extremities: left shoulder held in adduction position, painful abduction position at 30 degree angle, tenderness over the left humerus. Neurovascularly intact in the left upper extremity. Neuro: Oriented X 3. Cranial nerve exam: II-XII are grossly intact No motor deficit. No sensory deficit. Reflexes normal. Course Reevaluation(s) Reevaluation #1: Physical exam is consistent with left rotator cuff tendinitis. Patient was instructed to follow-up with Dr. Miramontes on-call for ortho today. NSAIDs. Time: 10:42 Medical Decision Making Differential Diagnosis Differential Diagnoses: The differential diagnosis associated with the presentation includes ( left shoulder dislocation, left shoulder fracture, rotator cuff tendinitis.) Admission/Observation Consideration of admission/observation: Escalation of care including admission/observation considered Lab Data MDM Lab Attestation statement: I reviewed the patient's lab results. Labs: Lab Results 09/26/24 Range/Units 09:10 Urine Color Yellow Urine Appearance Clear Urine pH 5.0 (5.0-9.0) Ur Specific [place] >= 1.030 H (1.005-1.025) Urine Protein Negative (Neg-Trace) mg/dL Urine Glucose (UA) Negative (Negative) mg/dL Urine Ketones Trace (Negative) mg/dL Urine Blood Negative (Negative) Urine Nitrite Negative (Negative) Ur Leukocyte Esterase Negative (Negative) Urine RBC 0-2 (0-2) /HPF Urine WBC 0-5 (0-5) /HPF Ur Squamous Epith Cells 3-5 (0-2) /HPF Urine Bacteria Trace (None Seen) Hyaline Casts 0-2 (0-2) /LPF Independent Interpretation I performed an independent interpretation of an: Plain X-Ray ( Left shoulder:Possible rotator cuff calcification. Otherwise unremarkable examination of the left shoulder. ) Radiology Impression Discussion of test interpretation with radiology: I have reviewed the radiologist's reading. Discharge Plan Discharge Clinical Impression: Tendinitis of left rotator cuff Patient Disposition: Home, Self-Care Instructions: Rotator Cuff Tendinitis (ED) Prescriptions: New ibuprofen 400 mg tablet 400 mg PO Q8H PRN (Reason: pain) Qty: 10 0RF No Action prednisone 20 mg tablet 40 mg PO DAILY 5 Days Qty: 10 0RF hydrocortisone 1 % cream 1 appl topical BID PRN (Reason: itching) 7 Days Qty: 28.35 0RF hydrocortisone 1 % cream 1 appl topical BID PRN (Reason: itching) Qty: 28.35 0RF Rx Instructions: For itching to genital area triamcinolone acetonide 0.1 % cream 1 appl topical BID Qty: 15 0RF Rx Instructions: Apply to all areas of itching EXCEPT genital area prednisone 20 mg tablet 20 mg PO DAILY 5 Days Qty: 5 0RF cetirizine [Zyrtec] 10 mg tablet 10 mg PO DAILY PRN (Reason: allergy symptoms) Qty: 10 0RF diphenhydramine HCl [Benadryl] 25 mg capsule 25 mg PO BEDTIME PRN (Reason: itching) Qty: 14 0RF Rx Instructions: may repeat once in 30-60 minutes if not effective epinephrine [EpiPen] 0.3 mg/0.3 mL auto-injector 0.3 mg IM Q10M PRN (Reason: anaphylaxis) Qty: 2 0RF Rx Instructions: for 2 doses hydroxyzine HCl 25 mg tablet 25 mg PO QID PRN (Reason: itching) Qty: 20 0RF cyclobenzaprine 10 mg tablet 10 mg PO TID PRN (Reason: muscle spasm) Qty: 20 0RF diphenhydramine HCl [Benadryl] 25 mg capsule 25 mg PO TID PRN (Reason: itching) 7 Days Qty: 21 0RF prednisone 20 mg tablet 40 mg PO DAILY 5 Days Qty: 10 0RF famotidine [Pepcid] 20 mg tablet 20 mg PO BID 7 Days Qty: 14 0RF ibuprofen 400 mg tablet 400 mg PO TID PRN (Reason: fever or pain) Qty: 30 0RF prednisone 20 mg tablet 20 mg PO DAILY 7 Days Qty: 7 0RF cyclobenzaprine 10 mg tablet 10 mg PO TID PRN (Reason: muscle spasm) Qty: 20 0RF lidocaine [Lidoderm] 5 % adhesive patch,medicated 1 patch topical DAILY Qty: 15 0RF Rx Instructions: leave on most painful area for up to 12 hrs Referrals: Jose Miramontes MD [Physician] - Print Language: Lithuanian
[2024-09-26] MEDS: Ibuprofen 400 MG TABLET PO (10:48)
--- NOTE | 2024-09-26 10:52 | PC.NURSE ---
pt was seen by Dr Cameron and made aware of d/c care plan. medicated as charted
== END 2024-09-26 10:53 | disposition home or self-care (01) ==
PROVIDERS: Emergency Provider Emergency Medicine
DX: M75.32 Calcific tendinitis of left shoulder (principal); M25.512 Pain in left shoulder; Z79.899 Other long term (current) drug therapy
CPT/HCPCS: 73030; 81001; 99283

== ENCOUNTER → 2024-09-26 09:10 | Outpatient (BNV) | payer MEDICAID, SELFPAY | PROVIDERS: Visit Provider Radiology Diagnostic Radiology | DX: M25.512 Pain in left shoulder (principal) | CPT/HCPCS: 73030 ==

== ENCOUNTER 2025-04-26 09:23 | Emergency (ER) | payer MEDICAID, SELFPAY ==
[2025-04-26 09:28] VITALS: BP 135/74; PULSE 104; RESP 16; TEMP 36.5; O2SAT 97; BMI 26.6
--- NOTE | 2025-04-26 09:38 | ED.SKABFB ---
HPI - Skin/Abscess/Foreign Bdy General Chief complaint: Skin/Abscess/Foreign Body Stated complaint: itchy all over, wont go away Time Seen by Provider: 04/26/25 09:28 Source: patient, RN notes reviewed and ict support and test engineers Mode of arrival: ambulatory Limitations: language barrier History of Present Illness ED Provider: Janet Deleon PA-C HPI narrative: This is a 64-year-old [place]-speaking female, with a past medical history of hyperlipidemia, who presents emergency department with concerns of ?itching all over? for the last month. No known allergies or triggers. She states that she took Benadryl this morning without any relief. Patient reports that she came here from [place] 2-3 weeks ago. She states that over the last week she has had itchiness throughout her body. She states that she will have areas of itchiness, and bumps that periodically appear. She denies history of similar symptoms in the past. No new soaps, lotions, detergents or medications. No new foods. She denies any difficulty swallowing or breathing. She does report that she is exposed to her son's dog and is unsure if she is allergic to it. No other complaints or concerns at this time. complaint: rash Onset (ago): week(s) Quality: pruritic Pain Consistency: constant Relieving factors: none Exacerbating factors: none Associated symptoms: denies other symptoms Treatments prior to arrival: none Related Data Previous Rx's ?Medication ?Instructions ?Recorded prednisone 20 mg tablet 40 mg (2 x 20 mg) PO DAILY 5 days 02/05/23 #10 tabs hydrocortisone 1 % topical cream 1 appl topical BID PRN itching 1 02/16/23 week #28.35 grams hydrocortisone 1 % topical cream 1 appl topical BID PRN itching 02/28/23 #28.35 grams triamcinolone acetonide 0.1 % 1 appl topical BID #15 grams 02/28/23 topical cream cetirizine 10 mg tablet (Zyrtec) 10 mg PO DAILY PRN allergy 06/12/23 symptoms #10 tabs diphenhydramine HCl 25 mg capsule 25 mg PO BEDTIME PRN itching #14 06/12/23 (Benadryl) caps epinephrine 0.3 mg/0.3 mL 0.3 mg (0.3 mL) IM Q10M PRN 06/12/23 injection, auto-injector (EpiPen) anaphylaxis #2 ea prednisone 20 mg tablet 20 mg PO DAILY 5 days #5 tabs 06/12/23 cyclobenzaprine 10 mg tablet 10 mg PO TID PRN muscle spasm #20 06/27/23 tabs hydroxyzine HCl 25 mg tablet 25 mg PO QID PRN itching #20 tabs 06/27/23 diphenhydramine HCl 25 mg capsule 25 mg PO TID PRN itching 7 days 10/05/23 (Benadryl) #21 caps famotidine 20 mg tablet (Pepcid) 20 mg PO BID 7 days #14 tabs 10/05/23 prednisone 20 mg tablet 40 mg (2 x 20 mg) PO DAILY 5 days 10/05/23 #10 tabs ibuprofen 400 mg tablet 400 mg PO TID PRN fever or pain 12/18/23 #30 tabs prednisone 20 mg tablet 20 mg PO DAILY 7 days #7 tabs 03/16/24 cyclobenzaprine 10 mg tablet 10 mg PO TID PRN muscle spasm #20 03/30/24 tabs lidocaine 5 % topical patch 1 patch topical DAILY #15 ea 04/14/24 (Lidoderm) ibuprofen 400 mg tablet 400 mg PO Q8H PRN pain #10 tabs 09/26/24 hydrocortisone 1 % topical cream 1 appl topical BID PRN itching 04/26/25 (Cortisone (hydrocortisone)) #28.4 grams hydroxyzine HCl 25 mg tablet 25 mg PO TID PRN itching #14 tabs 04/26/25 prednisone 20 mg tablet 20 mg PO DAILY 5 days #5 tabs 04/26/25 Allergies Allergy/AdvReac Type Severity Reaction Status Date / Time No Known Allergies Allergy Verified 04/26/25 09:31 Review of Systems Review of Systems: Constitutional : No Fever, No Chills ENT/Mouth : No sore throat, No Rhinorrhea Eyes: No Eye Pain, No Swelling, No Redness Cardiovascular : No Chest Pain, No SOB Respiratory : No Cough, No Sputum Gastrointestinal : No Nausea, No Vomiting, No Diarrhea, No abdominal Pain Genitourinary : No Dysuria, No Hematuria Musculoskeletal : No joint pain, No Myalgias, No Joint Swelling Skin : No Skin Lesions Neuro : No Weakness, No Numbness, No Headache All other systems reviewed and are negative Yes all other systems are reviewed and are negative Constitutional: Constitutional: Reports as per [facility] Past Medical History Medical History Hyperlipidemia Muscle pain, myofascial Social History Social History Patient Tobacco Use Status: Tobacco use Unknown Physical Exam Exam: Exam: General: Awake, alert, and oriented X3. No acute distress. HEENT: Normal inspection, speaking full sentences under no acute distress. No trismus, drooling, or dysphonia. Airway widely patent CVS: Normal heart rate and rhythm. Pulses normal. Respiratory: No respiratory distress, lungs clear to auscultation bilaterally. Skin: Patient with dry skin noted throughout her body, there multiple papules noted, 1 on the right shoulder, with 1 on the left abdomen, with excoriations noted. No surrounding erythema or warmth. Extremities: Normal to inspection Neuro: Oriented X 3. No motor deficit. No sensory deficit. Vital Signs: Vital Signs: Last Vital Signs Temp 97.7 F 04/26/25 09:28 Pulse 104 H 04/26/25 09:28 Resp 16 04/26/25 09:28 BP 135/74 04/26/25 09:28 Pulse Ox 97 04/26/25 09:28 O2 Del Method Room Air 04/26/25 09:28 BMI result Body Mass Index 26.6 : Other: Mons pubis, with no notable rashes, papules or pustules. No surrounding erythema. External examination was performed with Yomi Ghotra budget technician present at all times. No vaginal discharge noted on the external labia majora. Medical Decision Making Medical Decision Making MDM Narrative: This is a 64-year-old [place]-speaking female, with a history of hyperlipidemia, who presents emergency department with concerns of itchiness throughout her body for the last week. She states that the rash started in her groin, and has since spread. She is not sexually active, denies any vaginal discharge or bleeding. She recently traveled from [place] to here, currently living with her son, son has a dog, unsure if she is allergic to it. Patient with dry skin noted throughout her body, as well as some papules noted scattered throughout her body. She is speaking in full sentences under no acute distress. Patient wanting antibiotic for her rash. She has no evidence of cellulitis, or abscess. I discussed at length that patient does not require antibiotic treatment and could be more harmful than good. Discussed that we can treat with hydrocortisone cream, and hydroxyzine. She states that she already took hydroxyzine this morning and this was not beneficial. Will treat with small course of prednisone. Discussed with patient that if she continues to scratch the areas, she may noticed or excoriations pop up which can cause the itchiness to worsen. She understands and agrees with this plan. She was given strict return precautions. Patient stable for discharge Differential Diagnosis Differential Diagnoses: The differential diagnosis associated with the presentation includes Atopic dermatitis, cellulitis, folliculitis, xerosis Discharge Plan Discharge Clinical Impression: Rash Patient Disposition: Home, Self-Care Instructions: Acute Rash (ED) Additional Instructions: You were seen in the emergency department due to a rash. It is unclear what is causing you to have this rash, may be something that you are exposed to, or can be caused by dry skin. Please take prescribed prednisone as directed, take once today. Use cortisone cream as needed. Do not use on face. Use hydroxyzine for your symptoms, you can take this up to 3 times a day. Use this as needed. If any new or worsening symptoms occur including but not limited to severe chest pain, shortness for breath, difficulty breathing, please seek emergent care. Prescriptions: New hydrocortisone [Cortisone (hydrocortisone)] 1 % cream 1 appl topical BID PRN (Reason: itching) Qty: 28.4 0RF prednisone 20 mg tablet 20 mg PO DAILY 5 Days Qty: 5 0RF hydroxyzine HCl 25 mg tablet 25 mg PO TID PRN (Reason: itching) Qty: 14 0RF No Action prednisone 20 mg tablet 40 mg PO DAILY 5 Days Qty: 10 0RF hydrocortisone 1 % cream 1 appl topical BID PRN (Reason: itching) 7 Days Qty: 28.35 0RF ibuprofen 400 mg tablet 400 mg PO Q8H PRN (Reason: pain) Qty: 10 0RF hydrocortisone 1 % cream 1 appl topical BID PRN (Reason: itching) Qty: 28.35 0RF Rx Instructions: For itching to genital area triamcinolone acetonide 0.1 % cream 1 appl topical BID Qty: 15 0RF Rx Instructions: Apply to all areas of itching EXCEPT genital area prednisone 20 mg tablet 20 mg PO DAILY 5 Days Qty: 5 0RF cetirizine [Zyrtec] 10 mg tablet 10 mg PO DAILY PRN (Reason: allergy symptoms) Qty: 10 0RF diphenhydramine HCl [Benadryl] 25 mg capsule 25 mg PO BEDTIME PRN (Reason: itching) Qty: 14 0RF Rx Instructions: may repeat once in 30-60 minutes if not effective epinephrine [EpiPen] 0.3 mg/0.3 mL auto-injector 0.3 mg IM Q10M PRN (Reason: anaphylaxis) Qty: 2 0RF Rx Instructions: for 2 doses hydroxyzine HCl 25 mg tablet 25 mg PO QID PRN (Reason: itching) Qty: 20 0RF cyclobenzaprine 10 mg tablet 10 mg PO TID PRN (Reason: muscle spasm) Qty: 20 0RF diphenhydramine HCl [Benadryl] 25 mg capsule 25 mg PO TID PRN (Reason: itching) 7 Days Qty: 21 0RF prednisone 20 mg tablet 40 mg PO DAILY 5 Days Qty: 10 0RF famotidine [Pepcid] 20 mg tablet 20 mg PO BID 7 Days Qty: 14 0RF ibuprofen 400 mg tablet 400 mg PO TID PRN (Reason: fever or pain) Qty: 30 0RF prednisone 20 mg tablet 20 mg PO DAILY 7 Days Qty: 7 0RF cyclobenzaprine 10 mg tablet 10 mg PO TID PRN (Reason: muscle spasm) Qty: 20 0RF lidocaine [Lidoderm] 5 % adhesive patch,medicated 1 patch topical DAILY Qty: 15 0RF Rx Instructions: leave on most painful area for up to 12 hrs Print Language: [place]
[2025-04-26 10:33] VITALS: BP 128/68; PULSE 98; RESP 16; TEMP 36.2; O2SAT 97
--- NOTE | 2025-04-26 10:33 | PC.NURSE ---
patient evaluated by provider, will discharge home with scripts
== END 2025-04-26 10:34 | disposition home or self-care (01) ==
PROVIDERS: Emergency Provider Emergency Medicine
DX: R21 Rash and other nonspecific skin eruption (principal)
CPT/HCPCS: 99282; 99283

== ENCOUNTER 2025-05-25 10:47 | Emergency (ER) | payer MEDICAID, SELFPAY ==
[2025-05-25 10:52] VITALS: BP 141/74; PULSE 112; RESP 20; TEMP 36.7; O2SAT 95; BMI 29.0
--- NOTE | 2025-05-25 10:55 | ED.GENADULT ---
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 Patient states that she was awoken from sleep due to nausea, with dizziness when she got up to get out of bed. Patient describes the dizziness really feels like she is about to pass out with positional changes and denies sensation of room spinning or like she is spinning. Patient states she has had a loss of appetite over the last week, but has been staying hydrated. Last bowel movement was this morning and was normal in consistency and caliber for her and is passing flatus. She denies sick contacts, recent travel, or new medications. Patient reports several episodes of vomiting. Denies chest pain, shortness of breath, abdominal pain, diarrhea, cough, nasal congestion, headache, visual changes, tinnitus, hearing loss, urinary symptoms MD complaint: nausea, vomiting, lightheadedness Related Data Previous Rx's ?Medication ?Instructions ?Recorded prednisone 20 mg tablet 40 mg (2 x 20 mg) PO DAILY 5 days 02/05/23 #10 tabs hydrocortisone 1 % topical cream 1 appl topical BID PRN itching 1 02/16/23 week #28.35 grams hydrocortisone 1 % topical cream 1 appl topical BID PRN itching 02/28/23 #28.35 grams triamcinolone acetonide 0.1 % 1 appl topical BID #15 grams 02/28/23 topical cream cetirizine 10 mg tablet (Zyrtec) 10 mg PO DAILY PRN allergy 06/12/23 symptoms #10 tabs diphenhydramine HCl 25 mg capsule 25 mg PO BEDTIME PRN itching #14 06/12/23 (Benadryl) caps epinephrine 0.3 mg/0.3 mL 0.3 mg (0.3 mL) IM Q10M PRN 06/12/23 injection, auto-injector (EpiPen) anaphylaxis #2 ea prednisone 20 mg tablet 20 mg PO DAILY 5 days #5 tabs 06/12/23 cyclobenzaprine 10 mg tablet 10 mg PO TID PRN muscle spasm #20 06/27/23 tabs hydroxyzine HCl 25 mg tablet 25 mg PO QID PRN itching #20 tabs 06/27/23 diphenhydramine HCl 25 mg capsule 25 mg PO TID PRN itching 7 days 10/05/23 (Benadryl) #21 caps famotidine 20 mg tablet (Pepcid) 20 mg PO BID 7 days #14 tabs 10/05/23 prednisone 20 mg tablet 40 mg (2 x 20 mg) PO DAILY 5 days 10/05/23 #10 tabs ibuprofen 400 mg tablet 400 mg PO TID PRN fever or pain 12/18/23 #30 tabs prednisone 20 mg tablet 20 mg PO DAILY 7 days #7 tabs 03/16/24 cyclobenzaprine 10 mg tablet 10 mg PO TID PRN muscle spasm #20 03/30/24 tabs lidocaine 5 % topical patch 1 patch topical DAILY #15 ea 04/14/24 (Lidoderm) ibuprofen 400 mg tablet 400 mg PO Q8H PRN pain #10 tabs 09/26/24 hydrocortisone 1 % topical cream 1 appl topical BID PRN itching 04/26/25 (Cortisone (hydrocortisone)) #28.4 grams hydroxyzine HCl 25 mg tablet 25 mg PO TID PRN itching #14 tabs 04/26/25 prednisone 20 mg tablet 20 mg PO DAILY 5 days #5 tabs 04/26/25 Allergies Allergy/AdvReac Type Severity Reaction Status Date / Time No Known Allergies Allergy Verified 05/25/25 10:58 Review of Systems Review of Systems: Yes all other systems are reviewed and are negative [facility] Past Medical History Attestation statement: The following information was validated with the patient. Source: old records reviewed and nursing notes reviewed Medical History Hyperlipidemia Muscle pain, myofascial Social History Social History Patient Tobacco Use Status: Tobacco use Unknown Advance Directives: No Advance Directives Information Provided: Yes Physical Exam ED Vital Signs: Vital Signs - 24 hr 05/25/25 10:52 05/25/25 14:00 11/27/25 14:26 Temperature 98.1 F 98.7 F Pulse Rate 112 H 100 97 Respiratory Rate 20 18 Blood Pressure 141/74 H 125/76 128/78 Pulse Oximetry 95 96 Oxygen Delivery Method Room Air Room Air 05/25/25 14:27 05/25/25 14:27 05/25/25 14:50 Temperature Pulse Rate 101 H 110 H 96 Respiratory Rate 16 Blood Pressure 132/72 128/76 128/75 Pulse Oximetry 98 Oxygen Delivery Method Room Air BMI result Body Mass Index 29.0 GENERAL APPEARANCE: ?AxOx4, generally well-appearing, no acute distress. HEENT: ?NC, AT. MMM. EOMI, no nystagmus noted, extraocular movements does reproduce dizziness, clear conjunctiva, oropharynx clear. NECK: ?Supple without lymphadenopathy.? No stiffness or restricted ROM. HEART:? Normal rate and regular rhythm, normal S1/S2, no m/r/g LUNGS:? CTAB, moving air well. No crackles or wheezes are heard. ABDOMEN: ?Soft, nontender, nondistended BACK: No CVAT, no obvious deformity. EXTREMITIES: ?Without cyanosis, clubbing or edema. NEUROLOGICAL: ?Grossly nonfocal. Alert and oriented, moving all 4 extremities. NIHSS sore of 0 Skin: ?Warm and dry without any rash. NIH Stroke Scale Internal: Initial- Upon Arrival Time: 12:04 Level of Consciousness: Alert Level of Consciousness Questions: Answers both questions correctly Level of Consciousness Commands: Performs both tasks correctly Best Gaze: Normal Visual: No visual loss Facial Palsy: Normal Motor Arm (Right): No drift Motor Arm (Left): No drift Motor Leg (Right): No drift Motor Leg (Left): No drift Limb Ataxia: Absent Sensory: Normal Best Language: No aphasia Dysarthia: Normal Extinction and Inattention: No abnormality Score: 0 Course Course Course Narrative: This is a rapid medical exam performed by Kevon Shelley NP: Additional HPI, ROS, PE not included below will be deferred to primary provider. Patient is a 64y/o Singaporean speaking female presenting to the ED with complaint of diffuse abdominal pain, nausea and vomiting, dizziness since this morning. Denies diarrhea. Denies urinary symptoms. No known sick contacts. Plan: viral serology, labs Medications Administered Discontinued Medications Generic Name Dose Route Start Last Admin Trade Name Freq PRN Reason Stop Dose Admin Diphenhydramine HCl 25 mg 05/25/25 11:51 05/25/25 12:28 Diphenhydramine Hcl 50 Mg/Ml Vial IVPUSH 05/25/25 11:52 25 mg ONCE ONE Administration Lactated Ringer's 1,000 mls @ 999 mls/hr 05/25/25 11:51 05/25/25 13:52 Lr IV 05/25/25 12:51 Infused .Q1H1M ONE Infusion Prochlorperazine Edisylate 10 mg 05/25/25 11:51 05/25/25 12:29 Prochlorperazine Edisylate 10 Mg/2 Ml Vial IVPUSH 05/25/25 11:52 10 mg ONCE ONE Administration Medical Decision Making Medical Decision Making [facility] Narrative: 64-year-old Singaporean speaking female with medical history of asthma, HLD presents to ED due to nausea, vomiting and dizziness that began this morning, describes dizziness as a sensation that she is about to pass out . Reports decreased PO intake due to loss of appetite, but has been staying hydrated. Symptoms are positional. No recent travel or sick contacts. VS on initial observation-BP 141/74, pulse rate of 112, respiratory rate of 20, afebrile with oral temp of 98.1?, O2 saturation 95% on room air. On physical exam patient is nontoxic appearing, in no acute distress, HEENT exam head is normocephalic, atraumatic, EOMI, no nystagmus, I am able to reproduce dizziness when she follows my finger, lungs clear to auscultation bilaterally, cardiac exam reveals normal rate and rhythm without murmurs/rubs/gallops, abdomen is soft, nondistended, no rigidity, no distention, nontender, neurologically intact with a NIHSS of 0 Plan: Labs, UA, EKG - Patient medicated with 1L IV fluids, 10 mg IV Compazine, 25 mg IV Benadryl for nausea and dizziness - we will reassess patient's symptoms after receiving medications, and evaluate for orthostatic vital signs EKG reveals normal sinus rhythm without ST-elevation/depression, with nonspecific T-wave inversions in AVR, V1, no prolonged QT Labs without leukocytosis/leukopenia, stable normocytic anemia with a hemoglobin of 11.8, hematocrit of 34.9, no electrolyte abnormalities Orthostatic vital signs negative for orthostatic hypotension. Course 14:44- patient's symptoms have improved considerably after medication. Patient's symptoms most significant for vertigo. Patient will be discharged home with meclizine to manage dizziness. I counseled patient to follow up with PCP for further management as she may need vestibular physical therapy for further management. Patient well enough to go home for self-care. Patient is in agreement with the plan. Differential Diagnosis Differential Diagnoses: The differential diagnosis associated with the presentation includes Vestibular neuritis BPPV Viral illness Viral gastroenteritis Dysrhythmia Dehydration Admission/Observation Consideration of admission/observation: Escalation of care including admission/observation considered Lab Data MDM Lab Attestation statement: I reviewed the patient's lab results. 05/25/25 11:12 05/25/25 11:12 Labs: Lab Results 05/25/25 05/25/25 Range/Units 11:12 13:59 WBC 7.5 (4.8-10.8) X10*3/uL RBC 3.82 L (4.20-5.50) X10*6/uL Hgb 11.8 L (12.0-16.0) g/dl Hct 34.9 L (37.0-47.0) % MCV 91.4 (80.0-98.0) fL MCH 30.9 (27.0-33.0) pg MCHC 33.8 (31.0-35.0) g/dl RDW 13.2 (11.0-16.0) % Plt Count 339 (160-400) X10*3/uL MPV 8.8 L (9.4-12.3) fL Immature Gran % (Auto) 0.4 (0.0-0.4) % Neut % (Auto) 48.7 (45-73) % Lymph % (Auto) 41.2 H (20-40) % [place] % (Auto) 8.9 (2-11) % Eos % (Auto) 0.4 (0-4) % Baso % (Auto) 0.4 (0-2) % Lymph # (Auto) 3.1 (1.2-4.9) X10*3/uL [place] # (Auto) 0.7 (0.1-1.2) X10*3/uL Eos # (Auto) 0.0 (0.0-0.4) X10*3/uL Baso # (Auto) 0.0 (0.0-0.2) X10*3/uL Abs Immat Gran (auto) 0.03 (0.00-0.03) X10*3/uL Absolute Neuts (auto) 3.7 (2.0-8.3) x10*3/uL Absolute Nucleated RBC 0.000 (0.0-0.012) X10*3/uL Nucleated RBC % (auto) 0.0 (0.0-0.2) /100WBC Sodium 139 (135-145) mmol/L Potassium 4.0 (3.3-5.1) mmol/L Chloride 102 (96-108) mmol/L Carbon Dioxide 26 (22-29) mmol/L Anion Gap 15 (12-20) BUN 14 (9-16) mg/dL Creatinine 0.73 (0.5-1.4) mg/dL Estim Creat Clear Calc 67.5 Estimated GFR > 60 Random Glucose 157 H (60-115) mg/dL Calcium 9.4 (8.4-10.2) mg/dL Magnesium 1.8 (1.6-2.6) mg/dL Total Bilirubin 0.5 (0.0-1.0) mg/dL AST 26 (5-31) U/L ALT 20 (0-31) U/L Alkaline Phosphatase 58 (39-117) U/L Total Protein 7.5 (6.5-8.0) g/dL Albumin 4.8 (3.5-5.0) g/dL Lipase 38 (8-78) U/L Urine Color Yellow Urine Appearance Clear Urine pH 6.5 (5.0-9.0) Ur Specific [place] 1.010 (1.005-1.025) Urine Protein Negative (Neg-Trace) mg/dL Urine Glucose (UA) Negative (Negative) mg/dL Urine Ketones Negative (Negative) mg/dL Urine Blood Trace H (Negative) Urine Nitrite Negative (Negative) Ur Leukocyte Esterase Negative (Negative) Urine RBC 0-2 (0-2) /HPF Urine WBC 0-5 (0-5) /HPF Ur Squamous Epith Cells 3-5 (0-2) /HPF Urine Bacteria Trace (None Seen) Hyaline Casts 0-2 (0-2) /LPF Influenza Type A (PCR) NEGATIVE (Negative) Influenza Type B (PCR) NEGATIVE (Negative) RSV RNA Qual (PCR) NEGATIVE (Negative) SARS-CoV-2 RNA (RT-PCR) NEGATIVE (Negative) Independent Interpretation I performed an independent interpretation of an: EKG Interpretation: I personally interpreted the EKG which reveals normal sinus rhythm without ST-elevation/depression, non specific inverted T-waves in AVR, and V1 Vent. Rate : 100 BPM Atrial Rate : 100 BPM P-R Int : 154 ms QRS Dur : 88 ms QT Int : 354 ms P-R-T Axes : 50 -18 -5 degrees QTcB Int : 456 ms Normal sinus rhythm Normal ECG When compared with ECG of 16-Mar-2024 10:58, No significant change was found External Record Review External record reviewed: Inpatient record, Office record and Outpatient record Chronic Conditions Patient?s care impacted by: Other (HLD) Discharge Plan Discharge Clinical Impression: Vertigo Patient Disposition: Home, Self-Care Instructions: Vertigo (DC), Near Syncope (ED), Dizziness (ED) Additional Instructions: You were evaluated in the emergency department today due to lightheadedness, dizziness, and nausea. Your lab work reveals a stable anemia, no electrolyte abnormalities. Your EKG was normal. Your symptoms improved considerably after medication with IV fluids, Compazine, and Benadryl. You are being prescribed meclizine which is a medication that can relieve dizziness. Please take this medication when you are beginning to feel dizzy. Please ensure you were getting plenty of oral hydration, and eating nutritious foods. Please follow up with your primary care doctor as you may need further investigation of your symptoms and/or vestibular physical therapy. Please return to the emergency department if you experience worsening dizziness, worsening lightheadedness, passing out, abdominal pain, nausea, vomiting, chest pain, shortness of breath or any new/worsening/concerning symptoms. Prescriptions: No Action prednisone 20 mg tablet 40 mg PO DAILY 5 Days Qty: 10 0RF hydrocortisone 1 % cream 1 appl topical BID PRN (Reason: itching) 7 Days Qty: 28.35 0RF ibuprofen 400 mg tablet 400 mg PO Q8H PRN (Reason: pain) Qty: 10 0RF hydrocortisone 1 % cream 1 appl topical BID PRN (Reason: itching) Qty: 28.35 0RF Rx Instructions: For itching to genital area triamcinolone acetonide 0.1 % cream 1 appl topical BID Qty: 15 0RF Rx Instructions: Apply to all areas of itching EXCEPT genital area prednisone 20 mg tablet 20 mg PO DAILY 5 Days Qty: 5 0RF cetirizine [Zyrtec] 10 mg tablet 10 mg PO DAILY PRN (Reason: allergy symptoms) Qty: 10 0RF diphenhydramine HCl [Benadryl] 25 mg capsule 25 mg PO BEDTIME PRN (Reason: itching) Qty: 14 0RF Rx Instructions: may repeat once in 30-60 minutes if not effective epinephrine [EpiPen] 0.3 mg/0.3 mL auto-injector 0.3 mg IM Q10M PRN (Reason: anaphylaxis) Qty: 2 0RF Rx Instructions: for 2 doses hydroxyzine HCl 25 mg tablet 25 mg PO QID PRN (Reason: itching) Qty: 20 0RF cyclobenzaprine 10 mg tablet 10 mg PO TID PRN (Reason: muscle spasm) Qty: 20 0RF diphenhydramine HCl [Benadryl] 25 mg capsule 25 mg PO TID PRN (Reason: itching) 7 Days Qty: 21 0RF prednisone 20 mg tablet 40 mg PO DAILY 5 Days Qty: 10 0RF famotidine [Pepcid] 20 mg tablet 20 mg PO BID 7 Days Qty: 14 0RF ibuprofen 400 mg tablet 400 mg PO TID PRN (Reason: fever or pain) Qty: 30 0RF prednisone 20 mg tablet 20 mg PO DAILY 7 Days Qty: 7 0RF cyclobenzaprine 10 mg tablet 10 mg PO TID PRN (Reason: muscle spasm) Qty: 20 0RF lidocaine [Lidoderm] 5 % adhesive patch,medicated 1 patch topical DAILY Qty: 15 0RF Rx Instructions: leave on most painful area for up to 12 hrs hydrocortisone [Cortisone (hydrocortisone)] 1 % cream 1 appl topical BID PRN (Reason: itching) Qty: 28.4 0RF prednisone 20 mg tablet 20 mg PO DAILY 5 Days Qty: 5 0RF hydroxyzine HCl 25 mg tablet 25 mg PO TID PRN (Reason: itching) Qty: 14 0RF Print Language: Singaporean
[2025-05-25 11:17] LABS: MANUAL DIFF FLAG NO
[2025-05-25 11:18] LABS: Hematocrit 34.9 % (37.0-47.0); Hemoglobin 11.8 g/dl (12.0-16.0); Imm Gran Abs Auto 0.03 X10*3/uL (0.00-0.03); Imm Gran Pct Auto 0.4 % (0.0-0.4); Lymphocytes Absolute Auto 3.1 X10*3/uL (1.2-4.9); Mean Corpuscular HGB Conc 33.8 g/dl (31.0-35.0); Mean Corpuscular Hemoglobin 30.9 pg (27.0-33.0); Mean Corpuscular Volume 91.4 fL (80.0-98.0); NRBC Abs Auto 0.000 X10*3/uL (0.0-0.012); NRBC Pct Auto 0.0 /100WBC (0.0-0.2); Platelet Count 339 X10*3/uL (160-400); Red Blood Count 3.82 X10*6/uL (4.20-5.50); White Blood Count 7.5 X10*3/uL (4.8-10.8)
[2025-05-25 11:43] LABS: Alanine Aminotransferase 20 U/L (0-31); Albumin Level 4.8 g/dL (3.5-5.0); Alkaline Phosphatase 58 U/L (39-117); Anion Gap 15 (12-20); Aspartate Amino Transferase 26 U/L (5-31); Blood Urea Nitrogen 14 mg/dL (9-16); Calcium 9.4 mg/dL (8.4-10.2); Carbon Dioxide 26 mmol/L (22-29); Chloride 102 mmol/L (96-108); Creatinine Clr Calc Pharmacy 67.5; Estimated Glomerular Filt Rate > 60; Lipase 38 U/L (8-78); Magnesium 1.8 mg/dL (1.6-2.6); Potassium 4.0 mmol/L (3.3-5.1); Sodium 139 mmol/L (135-145); Total Protein 7.5 g/dL (6.5-8.0)
--- NOTE | 2025-05-25 11:50 | ECG_ITS ---
Test Reason : DIZZINESS Blood Pressure : */* mmHG Vent. Rate : 100 BPM Atrial Rate : 100 BPM P-R Int : 154 ms QRS Dur : 88 ms QT Int : 354 ms P-R-T Axes : 50 -18 -5 degrees QTcB Int : 456 ms Normal sinus rhythm Normal ECG When compared with ECG of 16-Mar-2024 10:58, No significant change was found Referred By: Maria Luz Jin Electronically Signed By: Heriberto Pittman
[2025-05-25 11:59] LABS: Resp Syncy Virus RNA Qual PCR NEGATIVE (Negative); SARS COV2 PCR INHOUSE NEGATIVE (Negative)
[2025-05-25] MEDS: Lactated Ringers 1,000 ML 999 ML IV (12:29)
[2025-05-25 14:00] VITALS: BP 125/76; PULSE 100; RESP 18; TEMP 37.1; O2SAT 96
[2025-05-25 14:05] LABS: Appearance Urine Clear; Glucose Urine UA Negative (Negative); PH 6.5 (5.0-9.0); Specific Gravity - Urine 1.010 (1.005-1.025); UMIC TRIGGER UACC YES
[2025-05-25 14:26] VITALS: BP 128/78; PULSE 97
[2025-05-25 14:27] VITALS: BP 128/76; BP 132/72; PULSE 101; PULSE 110
[2025-05-25 14:50] VITALS: BP 128/75; PULSE 96; RESP 16; O2SAT 98
== END 2025-05-25 15:06 | disposition home or self-care (01) ==
PROVIDERS: Registered Nurse Emergency; Emergency Provider Emergency Medicine
DX: R42 Dizziness and giddiness (principal)
CPT/HCPCS: 36415; 80053; 81001; 83690; 83735; 85025; 87637; 93005; 96361; 96374; 96375; 99284; J0737; J1200; J7120

== ENCOUNTER → 2025-05-25 11:50 | Outpatient (BNV) | payer MEDICAID, SELFPAY | PROVIDERS: Emergency Provider Emergency Medicine; Visit Provider Internal Medicine Cardiovascular Disease | DX: R42 Dizziness and giddiness (principal) | CPT/HCPCS: 93010 ==

== ENCOUNTER 2025-06-01 13:18 | Emergency (ER) | payer MEDICAID, SELFPAY ==
[2025-06-01 14:06] VITALS: BP 96/64; PULSE 105; RESP 19; TEMP 36.4; O2SAT 99; BMI 26.4
--- NOTE | 2025-06-01 14:31 | ED_ITS ---
HPI - General Adult General Chief complaint: Skin/Abscess/Foreign Body Stated complaint: body rash Time Seen by Provider: 06/01/25 14:16 Source: patient Mode of arrival: ambulatory Limitations: no limitations History of Present Illness ED Provider: Stan Brooks HPI narrative: 64-year-old female for itchy rash. Patient states rash on foot, back and abdomen. Patient denies any lip swelling drooling change in voice chest pain shortness of breath. Related Data Previous Rx's ?Medication ?Instructions ?Recorded prednisone 20 mg tablet 40 mg (2 x 20 mg) PO DAILY 5 days 02/05/23 #10 tabs hydrocortisone 1 % topical cream 1 appl topical BID [place] N itching 1 02/16/23 week #28.35 grams hydrocortisone 1 % topical cream 1 appl topical BID AK N itching 02/28/23 #28.35 grams triamcinolone acetonide 0.1 % 1 appl topical BID #15 g daljit 02/28/23 topical cream cetirizine 10 mg tablet (Zyrtec) 10 mg PO DAILY PRN al lergy 06/12/23 symptoms #10 tabs diphenhydramine HCl 25 mg capsule 25 mg PO BEDTIME PRN itching #14 06/12/23 (Benadryl) caps epinephrine 0.3 mg/0.3 mL 0.3 mg (0.3 mL) IM Q10M PRN 06/12/23 injection, auto-injector (EpiPen) anaphylaxis #2 ea prednisone 20 mg tablet 20 mg PO DAILY 5 days #5 tab s 06/12/23 cyclobenzaprine 10 mg tablet 10 mg PO TID PRN muscle s pasm #20 06/27/23 tabs hydroxyzine HCl 25 mg tablet 25 mg PO QID PRN itching #20 tabs 06/27/23 diphenhydramine HCl 25 mg capsule 25 mg PO TID PRN itc salazar 7 days 10/05/23 (Benadryl) #21 caps famotidine 20 mg tablet (Pepcid) 20 mg PO BID 7 days # 14 tabs 10/05/23 prednisone 20 mg tablet 40 mg (2 x 20 mg) PO DAILY 5 days 10/05/23 #10 tabs ibuprofen 400 mg tablet 400 mg PO TID PRN fever or p ain 12/18/23 #30 tabs prednisone 20 mg tablet 20 mg PO DAILY 7 days #7 tab s 03/16/24 cyclobenzaprine 10 mg tablet 10 mg PO TID PRN muscle s pasm #20 03/30/24 tabs lidocaine 5 % topical patch 1 patch topical DAILY #15 ea 04/14/24 (Lidoderm) ibuprofen 400 mg tablet 400 mg PO Q8H PRN pain #10 t abs 09/26/24 hydrocortisone 1 % topical cream 1 appl topical BID AK N itching 04/26/25 (Cortisone (hydrocortisone)) #28.4 grams hydroxyzine HCl 25 mg tablet 25 mg PO TID PRN itching #14 tabs 04/26/25 prednisone 20 mg tablet 20 mg PO DAILY 5 days #5 tab s 04/26/25 meclizine 25 mg tablet (Dramamine 25 mg PO DAILY PRN d izziness #30 05/25/25 (meclizine)) tabs hydrocortisone 0.5 % topical cream 1 appl topical BID 2 weeks #28.4 06/01/25 grams Allergies Allergy/AdvReac Type Severity Reaction Status Date / Time No Known Allergies Allergy Verified 06/01/25 14:10 Review of Systems Review of Systems: itchy rash Yes all other systems are reviewed and are negative [facility] Past Medical History Medical History Hyperlipidemia Muscle pain, myofascial Social History Social History Patient Tobacco Use Status: Tobacco use Unknown Advance Directives: No Advance Directives Information Provided: Yes Physical Exam ED Vital Signs: Vital Signs - 24 hr 06/01/25 14:06 Temperature 97.6 F Pulse Rate 105 H Respiratory Rate 19 Blood Pressure 96/64 Pulse Oximetry 99 Oxygen Delivery Method Room Air BMI result Body Mass Index 26.4 Const General: cooperative, healthy appearing, comfortable, no acute distress, well developed, alert and awake Orientation/consciousness: patient oriented x3 HENMT Other: Negative for facial swelling, drooling, lip swelling, tongue swelling, or uvula swelling. Head: Yes normal to inspection, Yes No palpable skull fracture present, Yes normocephalic and Yes atraumatic Throat: Yes posterior oropharynx normal, Yes tonsils normal and Yes uvula midline Eyes General: appearance normal, both eyes and all related structures Neck Neck: Yes normal visual inspection, Yes full ROM, Yes no lymphadenopathy, Yes no meningeal signs, Yes trachea midline, Yes supple, No anterior neck swelling and No tender Chest Chest palpation & inspection: normal inspection of the chest and normal palpation of entire chest wall Resp Effort & Inspection: normal respiratory effort and able to speak in complete sentences Cardio Jugular venous distension: no JVD Heart sounds: S1 normal heart sound present and S2 normal heart sound present GI Inspection: Yes normal to inspection Palpation (GI): Soft to palpation, not firm, nontender, no guarding and not rigid General: Yes no CVA tenderness Back/Spine/Pelvis Back: no CVA tenderness and No back tenderness Skin General skin exam: elasticity normal and turgor normal Rashes: rashes noted (Dermatitis rash left-sided abdomen, bilateral back, and bilateral foot) Neuro General: patient oriented x3, gait normal, tone normal, moves all extremities, Normal light touch and pain sensation, no meningeal signs, no focal motor deficits, CN's II-XI intact bilaterally and normal sensation to monofilament Extrem General: Yes normal to inspection, Yes full ROM and Yes capillary refill normal Psych Appearance: grossly normal, well kempt and not disheveled Medical Decision Making Medical Decision Making MDM Narrative: [age] year female presents to the ED for itchy rash on back/abdomen/foot. Rash dermatitis like. Recommend follow [facility] primary care provider. Patient discharged with steroids. not suspecting julisa helen syndrome, anayphylaxis reaction, viral rash, cellulititis, shingles or any other life threatening [place] Differential Diagnosis Differential Diagnoses: The differential diagnosis associated with the presentation includes (Rash, ) Admission/Observation Consideration of admission/observation: Escalation of care including admission/observation considered Independent Historian Clinical information obtained from an independent historian. History obtained from or confirmed by: Other (Patient) Prescription Management I considered prescription management with: Other (Rash) Discharge Plan Discharge Clinical Impression: Rash Patient Disposition: Home, Self-Care Instructions: Contact Dermatitis (ED), Acute Rash (ED) Additional Instructions: Recommend follow up with primary care provider. Return to the ED for any swelling of the lips, swelling of the tongue, drooling, voice, chest pain, shortness of breath, rash, fever, chills, peeling rash, or any other concerning symptoms. Follow up for [facility] [place] [phone] 149)- [phone] [place] [id number] [place] [id number] [email or web address] apointment can be made online. Prescriptions: New hydrocortisone 0.5 % cream 1 appl topical BID 14 Days Qty: 28.4 0RF No Action prednisone 20 mg tablet 40 mg PO DAILY 5 Days Qty: 10 0RF hydrocortisone 1 % cream 1 appl topical BID PRN (Reason: itching) 7 Days Qty: 28.35 0RF ibuprofen 400 mg tablet 400 mg PO Q8H PRN (Reason: pain) Qty: 10 0RF meclizine [Dramamine (meclizine)] 25 mg tablet 25 mg PO DAILY PRN (Reason: dizziness) Qty: 30 0RF hydrocortisone 1 % cream 1 appl topical BID PRN (Reason: itching) Qty: 28.35 0RF Rx Instructions: For itching to genital area triamcinolone acetonide 0.1 % cream 1 appl topical BID Qty: 15 0RF Rx Instructions: Apply to all areas of itching EXCEPT genital area prednisone 20 mg tablet 20 mg PO DAILY 5 Days Qty: 5 0RF cetirizine [Zyrtec] 10 mg tablet 10 mg PO DAILY PRN (Reason: allergy symptoms) Qty: 10 0RF diphenhydramine HCl [Benadryl] 25 mg capsule 25 mg PO BEDTIME PRN (Reason: itching) Qty: 14 0RF Rx Instructions: may repeat once in 30-60 minutes if not effective epinephrine [EpiPen] 0.3 mg/0.3 mL auto-injector 0.3 mg IM Q10M PRN (Reason: anaphylaxis) Qty: 2 0RF Rx Instructions: for 2 doses hydroxyzine HCl 25 mg tablet 25 mg PO QID PRN (Reason: itching) Qty: 20 0RF cyclobenzaprine 10 mg tablet 10 mg PO TID PRN (Reason: muscle spasm) Qty: 20 0RF diphenhydramine HCl [Benadryl] 25 mg capsule 25 mg PO TID PRN (Reason: itching) 7 Days Qty: 21 0RF prednisone 20 mg tablet 40 mg PO DAILY 5 Days Qty: 10 0RF famotidine [Pepcid] 20 mg tablet 20 mg PO BID 7 Days Qty: 14 0RF ibuprofen 400 mg tablet 400 mg PO TID PRN (Reason: fever or pain) Qty: 30 0RF prednisone 20 mg tablet 20 mg PO DAILY 7 Days Qty: 7 0RF cyclobenzaprine 10 mg tablet 10 mg PO TID PRN (Reason: muscle spasm) Qty: 20 0RF lidocaine [Lidoderm] 5 % adhesive patch,medicated 1 patch topical DAILY Qty: 15 0RF Rx Instructions: leave on most painful area for up to 12 hrs hydrocortisone [Cortisone (hydrocortisone)] 1 % cream 1 appl topical BID PRN (Reason: itching) Qty: 28.4 0RF prednisone 20 mg tablet 20 mg PO DAILY 5 Days Qty: 5 0RF hydroxyzine HCl 25 mg tablet 25 mg PO TID PRN (Reason: itching) Qty: 14 0RF Stand Alone Forms: Work/School Release Interventions: ED Discharge Assessment Last Done: 06/01/25 14:58 Discharge Date/Time: 06/01/25 14:59 Print Language: Irish
[2025-06-01 14:58] VITALS: BP 96/64; PULSE 105; RESP 19; TEMP 36.4; O2SAT 99
== END 2025-06-01 14:59 | disposition home or self-care (01) ==
PROVIDERS: Emergency Provider Emergency Medicine
DX: R21 Rash and other nonspecific skin eruption (principal); L29.9 Pruritus, unspecified
CPT/HCPCS: 99282; 99283

== ENCOUNTER 2025-06-15 15:59 | Emergency (ER) | payer MEDICAID, SELFPAY ==
[2025-06-15 17:07] VITALS: BP 109/71; PULSE 111; RESP 16; TEMP 36.6; O2SAT 98; BMI 26.4
--- NOTE | 2025-06-15 17:07 | ED_ITS ---
HPI - Animal Bite General Chief Complaint: Animal Bite Stated Complaint: dog bite Related Data Previous Rx's ?Medication ?Instructions ?Recorded prednisone 20 mg tablet 40 mg (2 x 20 mg) PO DAILY 5 days 02/05/23 #10 tabs hydrocortisone 1 % topical cream 1 appl topical BID MT N itching 1 02/16/23 week #28.35 grams hydrocortisone 1 % topical cream 1 appl topical BID MT N itching 02/28/23 #28.35 grams triamcinolone acetonide 0.1 % 1 appl topical BID #15 g daljit 02/28/23 topical cream cetirizine 10 mg tablet (Zyrtec) 10 mg PO DAILY PRN al lergy 06/12/23 symptoms #10 tabs diphenhydramine HCl 25 mg capsule 25 mg PO BEDTIME PRN itching #14 06/12/23 (Benadryl) caps epinephrine 0.3 mg/0.3 mL 0.3 mg (0.3 mL) IM Q10M PRN 06/12/23 injection, auto-injector (EpiPen) anaphylaxis #2 ea prednisone 20 mg tablet 20 mg PO DAILY 5 days #5 tab s 06/12/23 cyclobenzaprine 10 mg tablet 10 mg PO TID PRN muscle s pasm #20 06/27/23 tabs hydroxyzine HCl 25 mg tablet 25 mg PO QID PRN itching #20 tabs 06/27/23 diphenhydramine HCl 25 mg capsule 25 mg PO TID PRN itc salazar 7 days 10/05/23 (Benadryl) #21 caps famotidine 20 mg tablet (Pepcid) 20 mg PO BID 7 days # 14 tabs 10/05/23 prednisone 20 mg tablet 40 mg (2 x 20 mg) PO DAILY 5 days 10/05/23 #10 tabs ibuprofen 400 mg tablet 400 mg PO TID PRN fever or p ain 12/18/23 #30 tabs prednisone 20 mg tablet 20 mg PO DAILY 7 days #7 tab s 03/16/24 cyclobenzaprine 10 mg tablet 10 mg PO TID PRN muscle s pasm #20 03/30/24 tabs lidocaine 5 % topical patch 1 patch topical DAILY #15 ea 04/14/24 (Lidoderm) ibuprofen 400 mg tablet 400 mg PO Q8H PRN pain #10 t abs 09/26/24 hydrocortisone 1 % topical cream 1 appl topical BID MT N itching 04/26/25 (Cortisone (hydrocortisone)) #28.4 grams hydroxyzine HCl 25 mg tablet 25 mg PO TID PRN itching #14 tabs 04/26/25 prednisone 20 mg tablet 20 mg PO DAILY 5 days #5 tab s 04/26/25 meclizine 25 mg tablet (Dramamine 25 mg PO DAILY PRN d izziness #30 05/25/25 (meclizine)) tabs hydrocortisone 0.5 % topical cream 1 appl topical BID 2 weeks #28.4 06/01/25 grams Allergies Allergy/AdvReac Type Severity Reaction Status Date / Time No Known Allergies Allergy Verified 06/15/25 17:11 [facility] Past Medical History Medical History Hyperlipidemia Muscle pain, myofascial Social History Social History Patient Tobacco Use Status: Tobacco use Unknown Advance Directives: No Advance Directives Information Provided: No Physical Exam ED Vital Signs: Vital Signs - 24 hr 06/15/25 17:07 Temperature 97.8 F Pulse Rate 111 H Respiratory Rate 16 Blood Pressure 109/71 Pulse Oximetry 98 Oxygen Delivery Method Room Air BMI result Body Mass Index 26.4 Course Course Course Narrative: This is an RME: Additional HPI, ROS, PE not included below will be deferred to primary provider. RME assessment and note performed by: Janet Deleon PA-C This is a [id number] who presents to the ER with a complaint of dog bite which occurred today. Patient reports that her son's dog bit her in her right arm. Pt is unsure if the dog is UTD with its vaccinations. Plan: ?rabies series Reevaluation(s) Reevaluation #1: Patient left without completing treatment. Discharge Plan Discharge Clinical Impression: Dog bite Patient Disposition: Left W/O Completing Treatment Prescriptions: No Action prednisone 20 mg tablet 40 mg PO DAILY 5 Days Qty: 10 0RF hydrocortisone 1 % cream 1 appl topical BID PRN (Reason: itching) 7 Days Qty: 28.35 0RF ibuprofen 400 mg tablet 400 mg PO Q8H PRN (Reason: pain) Qty: 10 0RF meclizine [Dramamine (meclizine)] 25 mg tablet 25 mg PO DAILY PRN (Reason: dizziness) Qty: 30 0RF hydrocortisone 1 % cream 1 appl topical BID PRN (Reason: itching) Qty: 28.35 0RF Rx Instructions: For itching to genital area triamcinolone acetonide 0.1 % cream 1 appl topical BID Qty: 15 0RF Rx Instructions: Apply to all areas of itching EXCEPT genital area prednisone 20 mg tablet 20 mg PO DAILY 5 Days Qty: 5 0RF cetirizine [Zyrtec] 10 mg tablet 10 mg PO DAILY PRN (Reason: allergy symptoms) Qty: 10 0RF diphenhydramine HCl [Benadryl] 25 mg capsule 25 mg PO BEDTIME PRN (Reason: itching) Qty: 14 0RF Rx Instructions: may repeat once in 30-60 minutes if not effective epinephrine [EpiPen] 0.3 mg/0.3 mL auto-injector 0.3 mg IM Q10M PRN (Reason: anaphylaxis) Qty: 2 0RF Rx Instructions: for 2 doses hydroxyzine HCl 25 mg tablet 25 mg PO QID PRN (Reason: itching) Qty: 20 0RF cyclobenzaprine 10 mg tablet 10 mg PO TID PRN (Reason: muscle spasm) Qty: 20 0RF diphenhydramine HCl [Benadryl] 25 mg capsule 25 mg PO TID PRN (Reason: itching) 7 Days Qty: 21 0RF prednisone 20 mg tablet 40 mg PO DAILY 5 Days Qty: 10 0RF famotidine [Pepcid] 20 mg tablet 20 mg PO BID 7 Days Qty: 14 0RF ibuprofen 400 mg tablet 400 mg PO TID PRN (Reason: fever or pain) Qty: 30 0RF prednisone 20 mg tablet 20 mg PO DAILY 7 Days Qty: 7 0RF cyclobenzaprine 10 mg tablet 10 mg PO TID PRN (Reason: muscle spasm) Qty: 20 0RF lidocaine [Lidoderm] 5 % adhesive patch,medicated 1 patch topical DAILY Qty: 15 0RF Rx Instructions: leave on most painful area for up to 12 hrs hydrocortisone [Cortisone (hydrocortisone)] 1 % cream 1 appl topical BID PRN (Reason: itching) Qty: 28.4 0RF prednisone 20 mg tablet 20 mg PO DAILY 5 Days Qty: 5 0RF hydroxyzine HCl 25 mg tablet 25 mg PO TID PRN (Reason: itching) Qty: 14 0RF hydrocortisone 0.5 % cream 1 appl topical BID 14 Days Qty: 28.4 0RF Discharge Date/Time: 06/15/25 22:10
== END 2025-06-15 22:10 | disposition left against medical advice (07) ==
PROVIDERS: Emergency Provider Emergency Medicine
DX: S41.131A Puncture wound without foreign body of right upper arm, initial encounter (principal); W54.0XXA Bitten by dog, initial encounter; Y93.9 Activity, unspecified; Y92.9 Unspecified place or not applicable; Y99.9 Unspecified external cause status
CPT/HCPCS: 99281